=== PATIENT | female | born 1925 | race Caucasian/White ===

== ENCOUNTER 2016-05-01 15:39 | Emergency (ER) | payer MEDICARE, BC ==
[~2016-05-01] VITALS: Ht 162.6 cm; Wt 64.0 kg
[~2016-05-01 15:39] MED LIST: CEPH-460 PO; LEVO100T5 PO; METO25TA3 PO; MIRA33504 PO; NEXI40CA PO; NORC5TAB PO; OXYB5TAB PO
[2016-05-01 15:42] VITALS: BP 135/80; PULSE 94; RESP 20; TEMP 98.1; O2SAT 98
[2016-05-01 15:55] VITALS: BP 123/79; PULSE 91; RESP 18; O2SAT 97
[2016-05-01] MEDS ORDERED: ONDANSETRON HCL 4 MG/2 ML VIAL IVP ONE (16:15)
[2016-05-01] MEDS ORDERED: MORPHINE SULFATE 4 MG/ML INJ IV PUSH ONE (16:15)
[2016-05-01] MEDS ORDERED: SODIUM CHLORIDE 0.9% FLUSH 5 ML FLUSH IVF PRN (16:15)
[2016-05-01 16:23] LABS: AUTOMATED NEUTROPHIL # 4.2 TH/MM3 (1.8-7.7); BASOPHIL # 0.1 TH/MM3 (0-0.2); BASOPHIL % 0.8 % (0.0-2.0); EOSINOPHIL # 0.3 TH/MM3 (0-0.4); EOSINOPHIL % 4.4 % (0.0-4.0); HEMATOCRIT 45.8 % (35.0-46.0); HEMO FLAGS DIFF FINAL; LYMPH % 25.1 % (9.0-44.0); LYMPHOCYTE # 1.9 TH/MM3 (1.0-4.8); MEAN CELL VOLUME 86.5 FL (80.0-100.0); MEAN CORPUSCULAR HEMOGLOBIN 29.3 PG (27.0-34.0); MEAN CORPUSCULAR HGB CONC 33.8 % (32.0-36.0); MONO % 13.8 % (0.0-8.0); NEUT % 55.9 % (16.0-70.0); PLATELET COUNT 236 TH/MM3 (150-450); RED BLOOD COUNT 5.29 MIL/MM3 (4.00-5.30); RED CELL DISTRIBUTION WIDTH 14.3 % (11.6-17.2); WHITE BLOOD COUNT 7.4 TH/MM3 (4.0-11.0)
[2016-05-01 16:31] LABS: APTT (PATIENT) 28.4 SEC (24.3-30.1)
[2016-05-01 17:12] LABS: ALT (GPT) 24 U/L (10-53); ANION GAP 5 MEQ/L (5-15); AST (GOT) 23 U/L (15-37); BICARBONATE 31.1 MEQ/L (21.0-32.0); BLOOD UREA NITROGEN 8 MG/DL (7-18); CHLORIDE 105 MEQ/L (98-107); GLOMERULAR FILTRATION RATE 74 ML/MIN (>89); SODIUM (NA) 141 MEQ/L (136-145)
[2016-05-01 17:15] LABS: ALKALINE PHOSPHATASE 85 U/L (45-117); TOTAL BILIRUBIN ADULT 0.5 MG/DL (0.2-1.0)
[2016-05-01 17:45] VITALS: BP 103/60; PULSE 84; RESP 16; O2SAT 97
--- NOTE | 2016-05-01 18:36 | RADRPT ---
EXAM DATE/TIME: 05/01/2016 17:26 [facility] COMPARISON: CT ABDOMEN & PELVIS W/O CONTRAST, March 18, 2016, 17:14. INDICATIONS : Groin pain radiates to lower abdomen. ORAL CONTRAST: No oral contrast ingested. RADIATION DOSE: 14.62 CTDIvol (mGy) MEDICAL HISTORY : Hypertension. Diabetes SURGICAL HISTORY : Appendectomy. Cholecystectomy. Hysterectomy. ENCOUNTER: Initial ACUITY: 1 day PAIN SCALE: 3/10 LOCATION: Bilateral pelvis TECHNIQUE: Volumetric scanning of the abdomen and pelvis was performed. Using automated exposure control and ad justment of the mA and/or kV according to patient size, radiation dose was kept as low as reasonably achievable to obtain optimal diagnostic quality images. FINDINGS: The liver, spleen, pancreas, adrenal glands and kidneys are grossly normal. There is atherosclerotic calcification seen throughout the arterial system. The aorta measures up to 3.2 cm. This is unchan ged from the prior examination. There are diverticula seen in the left side of the colon. Significa nt surrounding inflammatory change is not seen. There is a small amount of air within the upper aspe ct of the vagina in the fornix on the left side. There is some minimal induration in the fat around the vaginal cuff. The patient appears to be status post hysterectomy. There is degenerative change in the lumbar spine. There is chronic collapse of the superior aspect fo L5. This was present previ ously. Coronary artery calcifications are present in the [place] coronary arteries. The patient is s tatus post sternotomy. CONCLUSION: 1. Colonic diverticula especially in the sigmoid region without significant inflammatory change. 2. Questionable minimal induration in the soft tissues around the vaginal cuff. This could be a pos toperative change from the prior hysterectomy. Some minimal inflammatory change related to the vagin al cuff cannot be excluded. This can be correlated clinically. 3. Degenerative change in the lumbar spine with chronic collapse of the superior aspect of L5. This was present previously. Jason Garcia MD on May 01, 2016 at 18:17 Board Certified Radiologist. This report was verified electronically.
[2016-05-01] MEDS ORDERED: CLOTR1%T TOPICAL (19:30)
--- NOTE | 2016-05-01 19:30 | PD ---
HPI Chief Complaint: Abdominal Pain Time Seen by Provider: 15:51 Travel History International Travel<30 days: No Contact w/Intl Traveler<30days: No Traveled to known affect area: No History of Present Illness HPI Patient is an 89-year-old female comes in complaining of lower abdominal pain. She says she has had this pain "for a long time." She says she was told at one point that they thought the pain was due to pain. She says she is scheduled for hip replacement soon. She denies nausea or vomiting. She denies any dysuria. She has not had any fever or chills. She is having regular bowel movements. PFSH Past Medical History Hx Anticoagulant Therapy: Yes (ASA) Cardiovascular Problems: Yes (CABG X 2) Chest Pain: Yes Coronary Artery Disease: Yes Diabetes: Yes Patient Takes Glucophage: No Diminished Hearing: No Gastrointestinal Disorders: Yes GERD: Yes Hypertension: Yes Myocardial Infarction: Yes Tetanus Vaccination: < 5 Years Influenza Vaccination: Yes Menopausal: Yes Past Surgical History Appendectomy: Yes Cholecystectomy: Yes Coronary Artery Bypass Graft: Yes (double) Eye Surgery: Yes (bilateral cataract) Gynecologic Surgery: Yes Hysterectomy: Yes Joint Replacement: Yes (bilateral knee replacements) Thoracic Surgery: Yes (UPPER RIBS REMOVED) Family History Family Hypercholesterolemia: Yes Social History Alcohol Use: No Tobacco Use: No Substance Use: No Allergies-Medications (Allergen,Severity, Reaction): Coded Allergies: Contrast Media (Verified Allergy, Severe, unknown, 05/01/16) Nitroglycerin (Verified Adverse Reaction, Severe, PT GETS TACHYCARDIA, ) Reported Meds & Prescriptions Reported Meds & Active Scripts Active Reported Oxybutynin ER 24 HR (Oxybutynin Chloride) 5 Mg Tab 5 Mg PO DAILY Metoprolol Tartrate 25 Mg Tab 25 Mg PO DAILY Levothyroxine (Levothyroxine Sodium) 100 Mcg Tab 100 Mcg PO DAILY [place]oh (Hydrocodone-Acetaminophen) 5-325 mg Tab 1 Tab PO TID Nexium (Esomeprazole DR) 40 Mg Capdr 40 Mg PO TID Review of Systems Except as stated in HPI: all other systems reviewed are Neg General / Constitutional: No: Fever, Chills HENT: No: Headaches, Lightheadedness Cardiovascular: No: Chest Pain or Discomfort Respiratory: No: Shortness of Breath Gastrointestinal: Positive: Abdominal Pain, No: Nausea, Vomiting Genitourinary: Positive: Pelvic Pain, No: Dysuria Skin: Positive Rash Neurologic: No: Weakness, Dizziness Physical Exam Narrative GENERAL: Awake and alert in no acute distress. SKIN: Warm and dry. Erythema in the skin fold under her pannus. HEAD: Atraumatic. Normocephalic. EYES: Pupils equal and round. No scleral icterus. ENT: No nasal bleeding or discharge. Mucous membranes pink and moist. NECK: Trachea midline. No JVD. CARDIOVASCULAR: Regular rate and rhythm. No murmur appreciated. RESPIRATORY: No accessory muscle use. Clear to auscultation. Breath sounds equal bilaterally. GASTROINTESTINAL: Abdomen soft, non-tender, nondistended. : No erythema or swelling around the vulva. No irritation, swelling or erythema at the entrance to the vagina. MUSCULOSKELETAL: No obvious deformities. No clubbing. No cyanosis. No edema. NEUROLOGICAL: Awake and alert. No obvious cranial nerve deficits. Motor grossly within normal limits. Normal speech. PSYCHIATRIC: Appropriate mood and affect; insight and judgment normal. Data Data Last Documented VS Vital Signs Date Time Temp Pulse Resp B/P Pulse Ox O2 Delivery O2 Flow Rate FiO2 05/01/16 17:45 84 16 103/60 97 Room Air 05/01/16 15:42 98.1 Orders Complete Blood Count With Diff (05/01/16 16:03) Comprehensive Metabolic Panel (05/01/16 16:03) Prothrombin Time / Inr (Pt) (05/01/16 16:03) Act Partial Throm Time (Ptt) (05/01/16 16:03) Urinalysis - C+S If Indicated (05/01/16 16:03) Ua Includes Microscopic (05/01/16 16:03) Iv Access Insert/Monitor (05/01/16 16:03) Ecg Monitoring (05/01/16 16:03) Oximetry (05/01/16 16:03) Morphine Inj (Morphine Inj) (05/01/16 16:15) Ondansetron Inj (Zofran Inj) (05/01/16 16:15) Sodium Chloride 0.9% Flush (Ns Flush) (05/01/16 16:15) Ct Abd/Pel W/O Iv Contrast (05/01/16 ) Labs Laboratory Tests Test 05/01/16 16:15 White Blood Count 7.4 TH/MM3 Red Blood Count 5.29 MIL/MM3 Hemoglobin 15.5 GM/DL Hematocrit 45.8 % Mean Corpuscular Volume 86.5 FL Mean Corpuscular Hemoglobin 29.3 PG Mean Corpuscular Hemoglobin 33.8 % Concent Red Cell Distribution Width 14.3 % Platelet Count 236 TH/MM3 Mean Platelet Volume 8.3 FL Neutrophils (%) (Auto) 55.9 % Lymphocytes (%) (Auto) 25.1 % Monocytes (%) (Auto) 13.8 % Eosinophils (%) (Auto) 4.4 % Basophils (%) (Auto) 0.8 % Neutrophils # (Auto) 4.2 TH/MM3 Lymphocytes # (Auto) 1.9 TH/MM3 Monocytes # (Auto) 1.0 TH/MM3 Eosinophils # (Auto) 0.3 TH/MM3 Basophils # (Auto) 0.1 TH/MM3 CBC Comment DIFF FINAL Differential Comment Prothrombin Time 11.0 SEC Prothromb Time International 1.0 RATIO Ratio Activated Partial 28.4 SEC Thromboplast Time Sodium Level 141 MEQ/L Potassium Level 4.0 MEQ/L Chloride Level 105 MEQ/L Carbon Dioxide Level 31.1 MEQ/L Anion Gap 5 MEQ/L Blood Urea Nitrogen 8 MG/DL Creatinine 0.74 MG/DL Estimat Glomerular Filtration 74 ML/MIN Rate Random Glucose 119 MG/DL Calcium Level 9.4 MG/DL Total Bilirubin 0.5 MG/DL Aspartate Amino Transf 23 U/L (AST/SGOT) Alanine Aminotransferase 24 U/L (ALT/SGPT) Alkaline Phosphatase 85 U/L Total Protein 7.3 GM/DL Albumin 3.6 GM/DL [facility] Medical Decision Making Medical Screen Exam Complete: Yes Emergency Medical Condition: Yes Differential Diagnosis Colitis versus UTI versus skin infection Narrative Course Patient is an 89-year-old female comes in complaining of lower abdominal pain. Exam shows what looks like a yeast in the skin fold underneath her abdominal pannus. IV status, labs sent. Labs show no acute abnormalities. CT of the abdomen and pelvis performed showed some inflammation around that vaginal cuff. This is likely due to her prior hysterectomy as her vaginal exam appears normal. Patient given IV fluids, small dose of morphine for pain. Will be discharged with prescription for clotrimazole cream to apply to the skin fold. Patient advised follow-up with her doctors. Advised to return to the ED as needed for any worsening symptoms. Advised to keep this skin the area clean and dry. Patient is comfortable with discharge at this time. Diagnosis Primary Impression: Yeast dermatitis Patient Instructions: Soraya Albicans Antigen (Into the skin), General Instructions Additional Instructions: Follow up with your doctors. Keep your skin clean and dry. Apply the clotrimazole cream to the area of redness of your stomach. Return to the ED as needed for any worsening symptoms. Scripts Clotrimazole Topical 1% Soln1 Applic TOPICAL BID #10 ML Ref 0 Prov:Martha Jha MD 05/01/16 Disposition: 01 DISCHARGE HOME Condition: Stable Martha Jha MD May 01, 2016 19:30
[2016-05-01 19:34] LABS: BLOOD, URINE NEG (NEG); CALCIUM OXALATE CRYSTALS,URINE OCC /hpf; COMMENT (UR) CULT NOT INDICATED; CULTURE IF INDICATED CULT NOT INDICATED; GLUCOSE,URINE NEG (NEG); KETONE, URINE TRACE mg/dL (NEG); MUCUS URINE FEW /lpf (OCC); NITRITE,URINE NEG (NEG); SQUAMOUS EPITHELIAL CELL URINE 3 /hpf (0-5); URINE COLOR YELLOW (YELLW/STRAW)
[2016-07-29] MEDS ORDERED: HYDR-3516 PO (15:14)
[2016-07-29] MEDS ORDERED: METO25TA3 PO (15:14)
[2016-07-29] MEDS ORDERED: LEVO100T5 PO (15:14)
[2016-07-29] MEDS ORDERED: NEXI40CA PO (15:14)
== END 2016-05-01 20:45 | disposition home or self-care (01) ==
LOC: NEPA 15:39
DX: B37.2 Candidiasis of skin and nail (principal); Z79.82 Long term (current) use of aspirin; I25.10 Atherosclerotic heart disease of native coronary artery without angina pectoris; E11.9 Type 2 diabetes mellitus without complications; I10 Essential (primary) hypertension
CPT/HCPCS: 74176; 80053; 81001; 85025; 85610; 85730; 96374; 96375; 99284; J2270; J2405

== ENCOUNTER 2016-06-03 12:52 | Day surgery (SDC) | payer MEDICARE, BC ==
[~2016-06-03] VITALS: Ht 162.6 cm; Wt 75.9 kg
[~2016-06-03 12:52] MED LIST changes: -CEPH-460 PO; +CLOTR1%T TOPICAL; -MIRA33504 PO
[2016-06-03] MEDS ORDERED: GENTAMICIN SULFATE 80 MG/2 ML VIAL ONE (13:02)
[2016-06-03] MEDS ORDERED: PERC5TAB12 PO (13:16)
[2016-06-03] MEDS ORDERED: XARE10TA PO (13:16)
[2016-06-03] MEDS ORDERED: MORPHINE SULFATE 8 MG/ML INJ IV PUSH PRN (13:30)
[2016-06-03] MEDS ORDERED: SODIUM CHLORIDE 0.9% FLUSH 5 ML FLUSH IVF PRN (13:30)
[2016-06-03] MEDS ORDERED: Post-op Orders (for Pharmacy) MISC XX ONE (13:30)
[2016-06-03] MEDS ORDERED: SODIUM CHLORID 0.9% 500 ML IV SCH (13:30)
[2016-06-03] MEDS ORDERED: METOPROLOL TARTRATE 25 MG TAB PO PRN (13:30)
[2016-06-03] MEDS ORDERED: LACTATED RINGER'S 1000 ML IV SCH (13:30)
[2016-06-03] MEDS ORDERED: TRANEXAMIC ACID INJ 1,000 MG in SODIUM CHLORIDE 0.9% INJ 100 ML IV SCH (13:30)
[2016-06-03] MEDS ORDERED: ZOLPIDEM TARTRATE 5 MG TAB PO PRN (13:30)
[2016-06-03] MEDS ORDERED: oxyCODONE/ACETAMINOPHEN 5 MG/325 MG TAB PO PRN ×2 (13:30)
[2016-06-03] MEDS ORDERED: KETOROLAC TROMETHAMINE 30 MG/ML (IVP) VIAL IVP SCH (13:30)
[2016-06-03] MEDS ORDERED: INSULIN HUMAN REGULAR 1,000 UNITS/10 ML VIAL SQ PRN (13:30)
[2016-06-03] MEDS ORDERED: PROMETHAZINE HCL 25 MG TAB PO PRN (13:30)
[2016-06-03] MEDS ORDERED: ACETAMINOPHEN 325 MG TAB PO PRN (13:30)
[2016-06-03] MEDS ORDERED: ONDANSETRON HCL 4 MG/2 ML VIAL IVP PRN (13:30)
[2016-06-03] MEDS ORDERED: ENOXAPARIN SODIUM 30 MG/0.3 ML SYRINGE SQ SCH (13:30)
[2016-06-03] MEDS ORDERED: ceFAZolin 2 GM PREMIX 50 ML IV SCH (14:00)
[2016-06-03] MEDS ORDERED: VANCOMYCIN HCL 1000 MG ON-CALL/NS 250 ML IV SCH ×2 (14:00)
[2016-06-03 14:01] LABS: PROTHROMBIN TIME - PATIENT 11.3 SEC (9.8-11.6)
[2016-06-03 14:04] VITALS: BP 143/91; PULSE 74; RESP 18; TEMP 98.1; O2SAT 98
[2016-06-03] MEDS ORDERED: HYDR-4009 TOPICAL (14:10)
[2016-06-03] MEDS ORDERED: CLOB-23 TOPICAL (14:10)
[2016-06-03] MEDS ORDERED: DONE10TA7 PO (14:10)
[2016-06-03] MEDS ORDERED: LEVO100T5 PO (14:10)
[2016-06-03] MEDS ORDERED: ESOM1CAP16 PO (14:10)
[2016-06-03] MEDS ORDERED: HYDR-3516 PO (14:10)
[2016-06-03] MEDS ORDERED: ALBU0.08 NEB (14:10)
[2016-06-03] MEDS ORDERED: LOTR15T TOPICAL (14:10)
[2016-06-03] MEDS ORDERED: CARB100C CHEW (14:10)
[2016-06-03] MEDS ORDERED: FLUO20CA4 PO (14:10)
[2016-06-03] MEDS ORDERED: DESO0.053 TOPICAL (14:10)
[2016-06-03] MEDS ORDERED: OXYB5TAB PO (14:10)
[2016-06-03] MEDS ORDERED: CYCL5TAB PO (14:10)
[2016-06-03] MEDS ORDERED: METO25TA3 PO (14:10)
[2016-06-03] MEDS ORDERED: SODIUM CHLORIDE 0.9% FLUSH 5 ML FLUSH IVF SCH (21:00)
[2016-06-04] MEDS ORDERED: VANCOMYCIN INJ 1,000 MG in SODIUM CHLOR 0.9% 250 ML INJ 250 ML IV SCH (02:00)
[2016-06-04] MEDS ORDERED: MULTIVITAMINS/MINERALS THERAPEUTIC TAB PO SCH (21:00)
[2016-07-29] MEDS ORDERED: METO25TA3 PO (15:14)
[2016-07-29] MEDS ORDERED: NEXI40CA PO (15:14)
[2016-07-29] MEDS ORDERED: HYDR-3516 PO (15:14)
[2016-07-29] MEDS ORDERED: LEVO100T5 PO (15:14)
== END 2016-06-03 15:35 | disposition home or self-care (01) ==
LOC: HSDI 12:52 → HSDC 12:52 → UNDOADMIN 12:52 → EDSTATUS 14:30 → HSDC 15:35
PROVIDERS: ATTEND Orthopaedic Surgery
DX: M16.11 Unilateral primary osteoarthritis, right hip (principal); R21 Rash and other nonspecific skin eruption; I10 Essential (primary) hypertension; Z53.9 Procedure and treatment not carried out, unspecified reason
CPT/HCPCS: 36415; 85610; 86850; 86900; 86901; G0463; J0690; J1580; J3370; J7050; J7120; 99211

== ENCOUNTER 2016-07-29 15:19 | Inpatient (IN) | payer MEDICARE, BC ==
[~2016-07-29] VITALS: Ht 162.6 cm; Wt 83.6 kg
[~2016-07-29 15:19] MED LIST changes: -CLOTR1%T TOPICAL; +HYDR-3516 PO; -NORC5TAB PO; -OXYB5TAB PO
[2016-07-30] MEDS ORDERED: PROPOFOL 200 MG/20 ML AMP IV ONE (08:38)
[2016-07-30] MEDS ORDERED: PHENYLEPH/NS 1000 MCG/10 ML SYR IV ONE (08:38)
[2016-07-30] MEDS ORDERED: ONDANSETRON HCL 4 MG/2 ML VIAL IV PUSH ONE (08:38)
[2016-07-30] MEDS ORDERED: LACTATED RINGER'S 1000 ML IV PRN (12:15)
[2016-07-30] MEDS ORDERED: METOPROLOL TARTRATE 25 MG TAB PO PRN (12:15)
[2016-07-30] MEDS ORDERED: CHLORHEXIDINE GLUCONATE 2 % 1 PACK (2 CLOTHS) TOPICAL PRN (12:15)
[2016-07-30] MEDS ORDERED: INSULIN HUMAN REGULAR 1,000 UNITS/10 ML VIAL SQ PRN (12:15)
[2016-07-30] MEDS ORDERED: SODIUM CHLORID 0.9% 500 ML IV PRN (12:15)
[2016-07-30] MEDS ORDERED: GENTAMICIN SULFATE 80 MG/2 ML VIAL ONE ×2 (12:38)
[2016-07-30] MEDS: EXPAREL PERI-ARTICULAR INJECTION (TOTAL VOL. 60 ML) P-ARTICULR SCH ×4 (13:00→15:09)
[2016-07-30 13:09] VITALS: BP 119/71; PULSE 70; RESP 18; TEMP 97.8; O2SAT 92
[2016-07-30 13:09] LABS: AUTOMATED NEUTROPHIL # 5.1 TH/MM3 (1.8-7.7); BASOPHIL # 0.1 TH/MM3 (0-0.2); BASOPHIL % 0.8 % (0.0-2.0); EOSINOPHIL # 0.3 TH/MM3 (0-0.4); EOSINOPHIL % 3.6 % (0.0-4.0); HEMATOCRIT 42.2 % (35.0-46.0); HEMO FLAGS DIFF FINAL; LYMPH % 29.2 % (9.0-44.0); LYMPHOCYTE # 2.8 TH/MM3 (1.0-4.8); MEAN CELL VOLUME 88.6 FL (80.0-100.0); MEAN CORPUSCULAR HEMOGLOBIN 29.6 PG (27.0-34.0); MEAN CORPUSCULAR HGB CONC 33.4 % (32.0-36.0); MONO % 12.6 % (0.0-8.0); NEUT % 53.8 % (16.0-70.0); PLATELET COUNT 240 TH/MM3 (150-450); RED BLOOD COUNT 4.76 MIL/MM3 (4.00-5.30); RED CELL DISTRIBUTION WIDTH 14.1 % (11.6-17.2); WHITE BLOOD COUNT 9.5 TH/MM3 (4.0-11.0)
[2016-07-30] MEDS ORDERED: TRANEXAMIC ACID INJ 770 MG in SODIUM CHLORIDE 0.9% INJ 100 ML IV SCH (13:15)
[2016-07-30] MEDS ORDERED: ceFAZolin INJ 1,000 MG VIAL ONE (15:06)
[2016-07-30] MEDS ORDERED: VANCOMYCIN HCL 1000 MG VIAL ONE (15:06)
[2016-07-30] MEDS ORDERED: SODIUM CHLOR 0.9% 250 ML INJ 250 ML ONE (15:06)
--- NOTE | 2016-07-30 17:38 | PD.OP ---
cc: Robbie Rascon Jr., MD Operative Report Date of Surgery: Jul 30, 2016 Preoperative Diagnosis: Right hip osteoarthritis Postoperative Diagnosis: Same Procedure: Right hip total hip arthroplasty anterior approach Anesthesia: Gen. Surgeon: Robbie Rascon Communication Spec(s): JAYJAY Ferrara The surgical procedure was assisted by my Advanced Registered Nurse Practitioner. My CLINICAL TRIALS SYSTEMS ADMINISTRATOR presence was necessary throughout this case for the manipulation and positioning of the surgical extremity. My CLINICAL TRIALS SYSTEMS ADMINISTRATOR was assisting me throughout the duration of this procedure. The skill set of an Advance Registered Nurse Practitioner was medically necessary to complete this procedure. During the surgical case, the surgical training specialist was working at the back table and the Advance Registered Nurse Practitioner was directly assisting me. Resident Surgeon: None Operation and Findings: DETAILS OF PROCEDURE: This patient has a long history of hip pain. Patient was found to have severe osteoarthritis. The patient had radiographic evidence of joint space narrowing with [id number] arthritis and osteophytes around the acetabulum as well as the femoral head. There was also some cystic changes. The patient failed conservative treatment with pain medications, anti-inflammatories, physical therapy, assistive devices including a cane, as well as therapeutic injection of the hip. The patient wished to proceed with surgery and informed consent was obtained. Operative site was marked. I discussed both posterior approach and anterior approach. The patient decided on anterior approach. Patient was brought to OR and placed on OR table. IV sedation and general anesthesia was administered by anesthesiologist. Patient positioned on a Idania table and was given IV antibiotics. Time-out procedure was performed. The right hip and thigh were prepped with alcohol followed by Hibiclens. The thigh was draped in the usual sterile fashion. Clean Air Suite was used for this procedure. The procedure began with a 5-inch incision over the anterolateral thigh. Subcutaneous tissue was dissected with Bovie. The fascia over the tensa fasciae latae was incised. Care was taken to avoid injury to the lateral femoral cutaneous nerve. The tensor muscle was retracted laterally. Sartorius was retracted medially. Retractors were now placed. The reflected head of the rectus is now elevated. A capsulotomy was performed over the anterior head capsule. Sutures were placed to help retract the capsule. At this point the femoral head and neck were identified. With soft tissue protected, oscillating saw was used to make a cut through the femoral neck, the femoral head was now removed. At this point attention was turned to preparation of the acetabulum. The labrum was excised. The acetabulum was sequentially reamed up to size 49mm. A 50mm tritanium cup was now placed. Fluoroscopy was used to aid in identification of appropriate version. Cup was fully impacted and found to have excellent fit. Hole eliminator was now placed. The liner was now impacted into the cup. At this point the hip was externally rotated. A hook was placed around the proximal femur. The capsule was released off the lateral and medial femur. The hip was now extended and adducted. Retractors were placed around the proximal femur to allow for exposure. A box osteotome was used to remove the lateral cortex of the femoral neck. A broach was used to help lateralize the prosthesis. Canal finder was used to create a path down the canal. Next, the canal was sequentially broached up to size 5. This was found to be an excellent fit. Calcar planer was placed. A standard head was placed, hip was reduced. Trial head was now was placed and the hip was found to have excellent stability with good range of motion. The leg lengths were measured under fluoroscopy and found to be equal compared to preoperatively. Trial broach was removed. The stem was opened. Stem was fully impacted into the proximal femur in appropriate version. The femoral head was placed. The hip was again reduced. Fluoroscopy confirmed excellent alignment of prosthesis. The wound was thoroughly irrigated and capsule was closed with #1 Vicryl. The fascia over the tensor fasciae muscle was closed with #1 Vicryl, subcutaneous tissue was closed with 3-0 Vicryl and the skin was closed with ryan. The capsule layers were injected with a mixture of saline and bupivicaine. Dressings were applied. The patient was transferred to Recovery Room in stable condition. IMPLANTS USED Striker Accolade stem size 5132 Titanium 50 cluster shell neutral liner Head 36 -5 metal POSTP-OP PLAN OF ACTIVITY Antibiotics: Ancef, vancomycin Antiocoagulation: Lovenox Weight bearing status: WBAT Dressing: Change daily, by RN starting postop day 2 Dispo: expected discharge 2-3 days. Robbie Rascon Jr., MD Jul 30, 2016 17:38
--- NOTE | 2016-07-30 17:40 | HHI.DS ---
Discharge Summary Admission Date Jul 30, 2016 at 11:38 Discharge Date: Aug 03, 2016 Admitting Diagnosis right hip OA Diagnosis: (1) Osteoarthritis of right hip Diagnosis: Principal Procedures right DIPIKA, anterior Brief History This is a 89 year old female patient CBC/BMP: 07/30/16 1251 Significant Findings Laboratory Tests Test 07/30/16 12:51 Monocytes (%) (Auto) 12.6 % (0.0-8.0) Monocytes # (Auto) 1.2 TH/MM3 (0-0.9) Imaging Last 72 hours Impressions Barium Swallow X-Ray 08/02/16 0000 Signed Impressions: Service Date/Time: Tuesday, August 02, 2016 11:45 - CONCLUSION: 1. Limited suboptimal exam. 2. The distal esophagus appears persistently narrowed which could indicate a stricture. This measured up to 1 cm in greatest diameter. 3. Small reducible hiatal hernia. 4. 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 Adam Osorio MD Hospital Course The patient was taken to the operating room by the undersigned for the above procedures which she tolerated well. She extubated then transferred to PACU in stable condition. The patient was subsequently transferred to the floor. The rest of his hospital stay, she was seen by speech therapy. She received adequate postoperative antibiotics. Her diet was advanced as tolerated and he had full return of bowel function as well as making adequate urine output. We were able to covert IV pain meds to po pain meds. The patient received adequate physical therapy during his stay in is being discharged with detailed physical therapy recommendations. The patient was seen and examined on the day of discharge and found to be in stable condition. On Exam at discharge: Operative extremity was neurovascularly intact with dressing that was clean, dry and intact. WBAT RLE. Anterior hip precautions. Follow-up 10-[address] Rascon @ orthopaedic clinic with a Bambi Sanabria. Pt Condition on Discharge: Good Discharge Disposition: Discharge to SNF Discharge Instructions Diet Instructions: As Tolerated, No Restrictions Activities You Can Perform: Full Weight Bearing Robbie Rascon Jr., MD Jul 30, 2016 17:40
[2016-07-30] MEDS ORDERED: PERC5TAB12 PO (17:42)
[2016-07-30] MEDS ORDERED: XARE10TA PO (17:42)
[2016-07-30] MEDS ORDERED: Post-op Orders (for Pharmacy) MISC XX ONE (17:45)
[2016-07-30] MEDS ORDERED: SODIUM CHLORIDE 0.9% FLUSH 10 ML FLUSH IV FLUSH PRN (17:45)
[2016-07-30] MEDS ORDERED: ACETAMINOPHEN 325 MG TAB PO PRN (17:45)
[2016-07-30] MEDS ORDERED: PROMETHAZINE HCL 25 MG TAB PO PRN (17:45)
[2016-07-30] MEDS ORDERED: ENOXAPARIN SODIUM 30 MG/0.3 ML SYRINGE SQ SCH (17:45)
[2016-07-30] MEDS ORDERED: RIVAROXABAN 10 MG TAB PO SCH (17:45)
--- NOTE | 2016-07-30 17:51 | RADRPT ---
EXAM DATE/TIME: 07/30/2016 14:39 [facility] COMPARISON: No previous studies available for comparison. INDICATIONS : Total right hip placement in or. MEDICAL HISTORY : None. SURGICAL HISTORY : None. ENCOUNTER: Initial ACUITY: 1 day PAIN SCORE: Non-responsive. LOCATION: Right Hip. FINDINGS: A two view examination of the right hip was performed. We see spot images show a right total hip arth roplasty. Both the femoral and acetabular components are appropriately positioned. No obvious fractur e on the images provided. CONCLUSION: Appropriate postoperative appearance of the right hip status post total arthroplasty. Bernard Kahn MD on July 30, 2016 at 17:48 Board Certified Radiologist. This report was verified electronically.
[2016-07-30] MEDS ORDERED: DO NOT ADM ANY ANTICOAGULANT DRUGS PRN (17:53)
--- NOTE | 2016-07-30 17:57 | PD.ORT.PN ---
Subjective Subjective Remarks Immediate postop note Objective Vitals Vital Signs Date Time Temp Pulse Resp B/P Pulse Ox O2 Delivery O2 Flow Rate FiO2 07/30/16 13:09 97.8 70 18 119/71 92 Result Diagram: 07/30/16 1251 Procedures right DIPIKA, anterior Objective Remarks Right lower extremity: Neurovascularly intact, +EHL/FHL, dressing clean, dry and intact. + PT/DP pulses. Supple compartments. Negative Homans sign. Left lower extremity: neurovascularly intact Assessment & Plan Problem List: (1) Osteoarthritis of right hip Assessment and Plan POD-0 - right anterior DIPIKA Antibiotics: Ancef Antiocoagulation: xarelto. continue up to 3 wks postop Weight bearing status: WBAT Dressing: Change daily, by RN starting postop day 2 Dispo: expected discharge 08/02 to inpatient rehab. 3008. rx in chart Robbie Rascon Jr., MD Jul 30, 2016 17:57
[2016-07-30] MEDS ORDERED: *morphine SULFATE 8 MG/ML PERIprocedure ONLY ONE (18:02)
[2016-07-30] MEDS ORDERED: TRANEXAMIC ACID IV SCH (18:30)
[2016-07-30] MEDS ORDERED: SODIUM CHLORIDE 0.9% IV SCH (18:30)
--- NOTE | 2016-07-30 18:36 | RADRPT ---
EXAM DATE/TIME: 07/30/2016 17:58 [facility] COMPARISON: HIP RIGHT (AP&LAT 2/3VWS) WO AP PELVIS, July 30, 2016, 14:39. INDICATIONS : Post op right total hip replacement MEDICAL HISTORY : None. SURGICAL HISTORY : None. ENCOUNTER: Initial ACUITY: 1 day PAIN SCORE: Non-responsive. LOCATION: Right hip FINDINGS: Examination of the right hip was performed with AP Pelvis. Right hip arthroplasty. Postsurgical clayton es with skin ryan seen. No hardware loosening or fracture. The acetabulum is grossly intact. CONCLUSION: Right hip arthroplasty. Deshaun Dickinson MD on July 30, 2016 at 18:33 Board Certified Radiologist. This report was verified electronically.
[2016-07-30] MEDS: SODIUM CHLOR 0.45% 1000 ML INJ 1,000 ML IV SCH (18:45)
[2016-07-30] MEDS: KETOROLAC TROMETHAMINE 30 MG/ML (IVP) VIAL IVP SCH ×2 (18:50→23:38)
[2016-07-30] MEDS ORDERED: *HYDROmorphone PF 1 MG VIAL PERIprocedural Use ONLY ONE (19:06)
[2016-07-30] MEDS ORDERED: HYDROmorphone HCL PF 1 MG/ML VIAL IV ONE (19:30)
--- NOTE | 2016-07-30 19:40 | RADRPT ---
EXAM DATE/TIME: 07/30/2016 19:14 [facility] COMPARISON: CHEST SINGLE AP, March 24, 2016, 3:38. INDICATIONS : Chest pain. MEDICAL HISTORY : Hypertension. Myocardial infarction. Gastroesophageal reflux disease. Coronary artery disease. Di abetes. SURGICAL HISTORY : CABG. Upper rib resection. ENCOUNTER: Initial ACUITY: 1 day PAIN SCORE: 4/10 LOCATION: Bilateral chest FINDINGS: A single view of the chest demonstrates the lungs to be symmetrically aerated without evidence of mas s, infiltrate or effusion. Mild cardiomegaly. The cardiomediastinal contours are unremarkable. Statu s post CABG. Osseous structures are intact. CONCLUSION: No acute disease. Deshaun Dickinson MD on July 30, 2016 at 19:38 Board Certified Radiologist. This report was verified electronically.
[2016-07-30 20:06] LABS: CREATINE KINASE 417 U/L (26-192)
[2016-07-30 20:18] LABS: CKMB 2.1 NG/ML (0.5-3.6)
[2016-07-30] MEDS: SODIUM CHLORIDE 0.9% FLUSH 10 ML FLUSH IV FLUSH SCH (21:00)
[2016-07-30] MEDS ORDERED: ZOLPIDEM TARTRATE 5 MG TAB PO PRN (21:00)
[2016-07-30 21:08] VITALS: BP 101/59; PULSE 85; RESP 20; TEMP 97; O2SAT 97
[2016-07-30 21:55] VITALS: O2SAT 97
[2016-07-30] MEDS: ceFAZolin 2 GM PREMIX 50 ML IV SCH (22:04)
[2016-07-31] VITALS (10 sets, daily range): BP systolic 101–138; BP diastolic 64–82; PULSE 90–115; RESP 18–24; TEMP 96.3–100.5; O2SAT 91–98
[2016-07-31] MEDS: ceFAZolin 2 GM PREMIX 50 ML IV SCH ×2 (02:37→08:18)
[2016-07-31] MEDS: oxyCODONE/ACETAMINOPHEN 5 MG/325 MG TAB PO PRN ×4 (02:38→17:56)
[2016-07-31] MEDS: MORPHINE SULFATE 8 MG/ML INJ IV PUSH PRN (04:44)
[2016-07-31] MEDS: KETOROLAC TROMETHAMINE 30 MG/ML (IVP) VIAL IVP SCH ×3 (06:10→17:57)
--- NOTE | 2016-07-31 07:53 | PD.ORT.PN ---
Subjective Subjective Remarks Very disorganized conversation. Responds to questions inappropriately but becomes more appropriate after multiple questions. Notes right groin pain 'all the way down leg' but then moves leg without any grimacing. Denies any difficulty breathing, shortness of breath or chest pain. Objective Vitals Vital Signs Date Time Temp Pulse Resp B/P Pulse Ox O2 Delivery O2 Flow Rate FiO2 07/31/16 04:00 100.5 115 24 138/78 97 07/31/16 00:47 99 07/31/16 00:00 98.1 90 22 101/64 98 07/30/16 21:55 97 Nasal Cannula 2.00 07/30/16 21:08 97.0 85 20 101/59 97 07/30/16 20:35 70 16 97 Nasal Cannula 2 07/30/16 20:30 97.5 69 16 105/65 98 Nasal Cannula 2 07/30/16 20:29 Nasal Cannula 2.00 07/30/16 20:15 68 16 100/61 97 Nasal Cannula 2 07/30/16 20:00 97.3 70 16 97/62 97 Nasal Cannula 2 07/30/16 19:50 15 07/30/16 19:50 15 07/30/16 19:45 72 16 98/60 96 Nasal Cannula 2 07/30/16 19:30 96.9 71 16 100/63 95 Nasal Cannula 2 07/30/16 19:15 71 15 102/62 95 Nasal Cannula 2 07/30/16 19:00 96.8 72 15 108/63 100 Nasal Cannula 3 07/30/16 18:45 70 15 111/66 99 Nasal Cannula 3 07/30/16 18:30 96.1 68 15 114/69 98 Nasal Cannula 3 07/30/16 18:15 66 15 116/74 97 Nasal Cannula 3 07/30/16 18:07 15 07/30/16 18:00 63 15 112/66 96 Nasal Cannula 3 07/30/16 17:50 66 20 117/69 100 Nasal Cannula 4 07/30/16 13:09 97.8 70 18 119/71 92 I/O 07/30/16 07/30/16 07/30/16 07/31/16 07/31/16 07/31/16 07:00 15:00 23:00 07:00 15:00 23:00 Intake Total 900 ml 647 ml Output Total 1000 ml Balance -100 ml 647 ml Intake IV Total 200 ml 647 ml Other 700 ml Output Urine Total 600 ml Estimated Blood Loss 400 ml Result Diagram: 07/30/16 1251 Procedures right DIPIKA, anterior Objective Remarks Sitting up in bed NAD AAO x 1, Disorganized conversation RLE Hip dressing c/d/i, mild swelling, no erythema thigh and calf supple, no grimacing with palpation, neg homans +motor at (doesnt respond to commands but moves foot independently), +sens , +nvi Pt seen and evaluated by Dr. Basim Eckert Assessment & Plan Ortho Post Op Day #: 1 Problem List: (1) Osteoarthritis of right hip Assessment and Plan POD#1 s/p R DIPIKA, anterior D/C PIERCING ARTIST - change to po pain meds. Xarelto 10mg qd PT - R LE WBAT. anterior dipika precautions. Dressing: Change daily, by RN starting postop day 2 D/C willson cath D/C planning, snf tuesday. Martha Snider Jul 31, 2016 07:53
[2016-07-31] MEDS: SODIUM CHLOR 0.45% 1000 ML INJ 1,000 ML IV SCH ×2 (08:23→20:54)
[2016-07-31] MEDS: SODIUM CHLORIDE 0.9% FLUSH 10 ML FLUSH IV FLUSH SCH ×2 (09:00→20:54)
[2016-07-31] MEDS ORDERED: RIVAROXABAN 10 MG TAB PO SCH ×2 (09:00→17:00)
--- NOTE | 2016-07-31 09:18 | PD.CONS ---
HPI Service [facility] Consult Requested By ortho Reason for Consult Medical management Primary Care Physician Pat Garsia MD Diagnoses: History of Present Illness 89-year-old female with multiple medical problems came to the same day surgery for left hip surgery by Dr. Rascon. Last the list is consulted for medical management. Patient was seen after surgery. She appears in not acute distress however she is noted disoriented, with flight ideas. She is following some commands. She reports constipation. Denies chest pain or shortness of breath. Has nausea, did not vomit. Pain is controlled by medications. She is on PREPARED FOODS SERVICE TEAM MEMBER pump, plan to discontinue today and transition by mouth pain medications. Ansari discontinued today.No urinary complaints. Histor is obtained from partially from patient and also from reviewing records. 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, degenerative joint disease, coronary artery disease, history of CABG, Hypothyroidism Past Surgical History CABG Reported Medications Reported Meds & Active Scripts Active Percocet (Oxycodone-Acetaminophen) 5-325 mg Tab 1 Tab PO Q4H PRN Xarelto (Rivaroxaban) 10 Mg Tab 10 Mg PO DAILY 21 Days Reported Metoprolol Tartrate 25 Mg Tab 25 Mg PO DAILY Nexium (Esomeprazole DR) 40 Mg Capdr 40 Mg PO BID Levothyroxine (Levothyroxine Sodium) 100 Mcg Tab 100 Mcg PO DAILY Hydrocodone-Acetaminophen 5-325 mg Tab 2 Tab PO Q8HR PRN Family History Brother and sister with diabetes mellitus Social History Former smoker Denies illicit drug use or alcohol use. Physical Exam Vital Signs Vital Signs Date Time Temp Pulse Resp B/P Pulse Ox O2 Delivery O2 Flow Rate FiO2 07/31/16 08:00 98.4 105 18 124/64 94 07/31/16 04:00 100.5 115 24 138/78 97 07/31/16 00:47 99 07/31/16 00:00 98.1 90 22 101/64 98 07/30/16 21:55 97 Nasal Cannula 2.00 07/30/16 21:08 97.0 85 20 101/59 97 07/30/16 20:35 70 16 97 Nasal Cannula 2 07/30/16 20:30 97.5 69 16 105/65 98 Nasal Cannula 2 07/30/16 20:29 Nasal Cannula 2.00 07/30/16 20:15 68 16 100/61 97 Nasal Cannula 2 07/30/16 20:00 97.3 70 16 97/62 97 Nasal Cannula 2 07/30/16 19:50 15 07/30/16 19:50 15 07/30/16 19:45 72 16 98/60 96 Nasal Cannula 2 07/30/16 19:30 96.9 71 16 100/63 95 Nasal Cannula 2 07/30/16 19:15 71 15 102/62 95 Nasal Cannula 2 07/30/16 19:00 96.8 72 15 108/63 100 Nasal Cannula 3 07/30/16 18:45 70 15 111/66 99 Nasal Cannula 3 07/30/16 18:30 96.1 68 15 114/69 98 Nasal Cannula 3 07/30/16 18:15 66 15 116/74 97 Nasal Cannula 3 07/30/16 18:07 15 07/30/16 18:00 63 15 112/66 96 Nasal Cannula 3 07/30/16 17:50 66 20 117/69 100 Nasal Cannula 4 07/30/16 13:09 97.8 70 18 119/71 92 Physical Exam GENERAL: This is a well-nourished, well-developed patient, in no apparent distress, with flight of ideas, appears confused at time. Verbally aggressive at times SKIN: No rashes, ecchymoses or lesions. Cool and dry. HEAD: Atraumatic. Normocephalic. No temporal or scalp tenderness. EYES: Pupils equal round and reactive. Extraocular motions intact. No scleral icterus. No injection or drainage. ENT: Nose without bleeding, purulent drainage or septal hematoma. Throat without erythema, tonsillar hypertrophy or exudate. Uvula midline. Airway patent. NECK: Trachea midline. No JVD or lymphadenopathy. Supple, nontender, no meningeal signs. CARDIOVASCULAR: Regular rate and rhythm without murmurs, gallops, or rubs. RESPIRATORY: Clear to auscultation. Breath sounds equal bilaterally. No wheezes , rales, or rhonchi. GASTROINTESTINAL: Abdomen soft, non-tender, nondistended. No hepato-splenomegaly , or palpable masses. No guarding. MUSCULOSKELETAL: S/p surgery right hip, dressing C/D/I, no erythema, mild edema. Extremities without clubbing, cyanosis, or edema. No joint tenderness, effusion, or edema noted. No calf tenderness. Negative Homans sign bilaterally. NEUROLOGICAL: Awake and alert. Cranial nerves II through XII intact. Motor and sensory grossly within normal limits. Five out of 5 muscle strength in all muscle groups. Normal speech. Laboratory Laboratory Tests Test 07/30/16 07/30/16 12:51 19:23 White Blood Count 9.5 Red Blood Count 4.76 Hemoglobin 14.1 Hematocrit 42.2 Mean Corpuscular Volume 88.6 Mean Corpuscular Hemoglobin 29.6 Mean Corpuscular Hemoglobin 33.4 Concent Red Cell Distribution Width 14.1 Platelet Count 240 Mean Platelet Volume 8.1 Neutrophils (%) (Auto) 53.8 Lymphocytes (%) (Auto) 29.2 Monocytes (%) (Auto) 12.6 Eosinophils (%) (Auto) 3.6 Basophils (%) (Auto) 0.8 Neutrophils # (Auto) 5.1 Lymphocytes # (Auto) 2.8 Monocytes # (Auto) 1.2 Eosinophils # (Auto) 0.3 Basophils # (Auto) 0.1 CBC Comment DIFF FINAL Differential Comment Blood Type O POSITIVE Antibody Screen NEGATIVE Total Creatine Kinase 417 Creatine Kinase MB 2.1 Creatine Kinase MB % 0.5 Troponin I LESS THAN 0.02 Result Diagram: 07/30/16 1251 Imaging Last Impressions Hip and Pelvis X-Ray 07/30/16 0000 Signed Impressions: Service Date/Time: Saturday, July 30, 2016 17:58 - CONCLUSION: Right hip arthroplasty. Deshaun Dickinson MD Hip X-Ray 07/30/16 0000 Signed Impressions: Service Date/Time: Saturday, July 30, 2016 14:39 - CONCLUSION: Appropriate postoperative appearance of the right hip status post total arthroplasty. Bernard Kahn MD Chest X-Ray 07/30/16 0000 Signed Impressions: Service Date/Time: Saturday, July 30, 2016 19:14 - CONCLUSION: No acute disease. Deshaun Dickinson MD Assessment and Plan Assessment and Plan Osteoarthritis left hip: S/p R DIPIKA, anterior by Dr Tarah mcgee on 07/30/16 D/C PREPARED FOODS SERVICE TEAM MEMBER - change to po pain meds. Patient is noted confused and disoriented Xarelto 10mg qd PT - R LE WBAT. anterior dipika precautions. Nausea: Antiemetics as need. 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 CXR is normal no signs of infection, no leukocytosis. VSS. Trop is neg and patient doesn't complain of any chest pain. Restart home medications. Currently on PREPARED FOODS SERVICE TEAM MEMBER, plan to transition to PO meds for pain. Monitor the patient. If continues to be confused and with flight of idea consider consulting psychiatry service. Discharge plan per ortho : DC to SNF on Tuesday. Discussed with the patient, nurse. Maira Silverio MD Jul 31, 2016 09:18
--- NOTE | 2016-07-31 13:53 | EKG ---
Date Performed: 07/30/2016 Time Performed: 19:16:07 PTAGE: 89 years EKG: SINUS BRADYCARDIA NONSPECIFIC ST & T-WAVE ABNORMALITY Rate has slowed since prior tracing N on-specific ST-T wave changes are more pronounced Clinical correlation is recommended BORDERLINE ECGP REVIOUS TRACING : 03/24/2016 03.27 DOCTOR: Fernando Gupta Interpretating Date/Time 07/31/2016 13:53:09
[2016-07-31] MEDS ORDERED: MAGNESIUM HYDROXIDE SUSP 30 ML CUP PO PRN (15:30)
[2016-07-31] MEDS ORDERED: LACTULOSE SYRUP 20 GM/30 ML CUP PO PRN (15:30)
[2016-07-31 16:24] LABS: BACTERIA, URINE RARE /hpf; BLOOD, URINE MOD (NEG); COMMENT (UR) CULTURE INDICATED; CULTURE IF INDICATED CULTURE INDICATED; GLUCOSE,URINE NEG (NEG); KETONE, URINE TRACE mg/dL (NEG); MUCUS URINE FEW /lpf (OCC); NITRITE,URINE NEG (NEG); URINE COLOR YELLOW (YELLW/STRAW)
[2016-07-31] MEDS: cefTRIAXone INJ 1,000 MG in SODIUM CHLORIDE 0.9% INJ 100 ML IV SCH (20:54)
[2016-07-31] MEDS: MULTIVITAMINS/MINERALS THERAPEUTIC TAB PO SCH (20:54)
[2016-07-31] MEDS: DOCUSATE SODIUM 100 MG CAP PO SCH (20:55)
[2016-08-01] VITALS: BP 112/84; PULSE 108; RESP 20; TEMP 97.4; O2SAT 91
[2016-08-01] MEDS: KETOROLAC TROMETHAMINE 30 MG/ML (IVP) VIAL IVP SCH ×3 (00:18→12:53)
[2016-08-01] MEDS: oxyCODONE/ACETAMINOPHEN 5 MG/325 MG TAB PO PRN (00:20)
[2016-08-01 04:00] VITALS: BP 99/58; PULSE 107; RESP 22; TEMP 96.7; O2SAT 99
[2016-08-01] MEDS: LEVOTHYROXINE SODIUM 100 MCG TAB PO SCH (05:05)
[2016-08-01 05:51] LABS: AUTOMATED NEUTROPHIL # 8.6 TH/MM3 (1.8-7.7); BASOPHIL % 0.4 % (0.0-2.0); EOSINOPHIL # 0.3 TH/MM3 (0-0.4); EOSINOPHIL % 2.7 % (0.0-4.0); HEMATOCRIT 35.6 % (35.0-46.0); HEMO FLAGS DIFF FINAL; LYMPH % 16.6 % (9.0-44.0); LYMPHOCYTE # 2.1 TH/MM3 (1.0-4.8); MEAN CELL VOLUME 88.9 FL (80.0-100.0); MEAN CORPUSCULAR HEMOGLOBIN 29.6 PG (27.0-34.0); MEAN CORPUSCULAR HGB CONC 33.3 % (32.0-36.0); MONO % 12.9 % (0.0-8.0); NEUT % 67.4 % (16.0-70.0); PLATELET COUNT 191 TH/MM3 (150-450); WHITE BLOOD COUNT 12.7 TH/MM3 (4.0-11.0)
[2016-08-01 06:01] LABS: BICARBONATE 27.6 MEQ/L (21.0-32.0); MAGNESIUM 1.9 MG/DL (1.5-2.5); POTASSIUM 3.8 MEQ/L (3.5-5.1)
[2016-08-01 08:00] VITALS: BP 104/57; PULSE 86; RESP 20; TEMP 97.9; O2SAT 95
--- NOTE | 2016-08-01 08:33 | PD.ORT.PN ---
Subjective Subjective Remarks No complaints. Lying in bed fairly comfortable. Walk yesterday and did well Objective Vitals Vital Signs Date Time Temp Pulse Resp B/P Pulse Ox O2 Delivery O2 Flow Rate FiO2 08/01/16 04:00 96.7 107 22 99/58 99 08/01/16 00:00 97.4 108 20 112/84 91 07/31/16 21:40 91 21 07/31/16 20:00 98.3 108 22 102/66 94 07/31/16 18:55 Room Air 07/31/16 17:05 106 07/31/16 16:00 98.9 108 18 121/80 94 07/31/16 12:00 96.3 105 18 130/82 96 07/31/16 09:32 96 21 I/O 07/31/16 07/31/16 07/31/16 08/01/16 08/01/16 08/01/16 07:00 15:00 23:00 07:00 15:00 23:00 Intake Total 647 ml 480 ml 661 ml 480 ml Output Total 150 ml Balance 647 ml 330 ml 661 ml 480 ml Intake Oral 480 ml 408 ml 480 ml IV Total 647 ml 253 ml Output Urine Total 150 ml # Voids 0 2 # Bowel Movements 0 0 0 Result Diagram: 08/01/16 0439 08/01/16 0439 Procedures right DIPIKA, anterior Objective Remarks Sitting up in bed NAD RLE Hip dressing c/d/i, mild swelling, no erythema thigh and calf supple, no grimacing with palpation, neg homans +motor, normal +sens, +nvi Assessment & Plan Problem List: (1) Osteoarthritis of right hip Assessment and Plan POD#2 s/p R DIPIKA, anterior PO pain meds. Xarelto 10mg qd PT - R LE WBAT. anterior dipika precautions. Dressing: Change daily, by RN starting today D/C planning, snf tuesday. Stable orthopedically Basim Eckert MD Aug 01, 2016 08:33
[2016-08-01] MEDS: DOCUSATE SODIUM 100 MG CAP PO SCH ×2 (09:00→21:00)
[2016-08-01] MEDS: MULTIVITAMINS/MINERALS THERAPEUTIC TAB PO SCH ×2 (09:00→21:00)
[2016-08-01 12:00] VITALS: BP 109/79; PULSE 105; RESP 18; TEMP 98.6; O2SAT 95
[2016-08-01] MEDS: SODIUM CHLORIDE 0.9% FLUSH 10 ML FLUSH IV FLUSH SCH ×2 (12:54→21:01)
[2016-08-01] MEDS: SODIUM CHLOR 0.45% 1000 ML INJ 1,000 ML IV SCH (12:59)
--- NOTE | 2016-08-01 14:53 | HHI.PR ---
Subjective Remarks In the chair, feel improved,. family at bedside. No fever or chills. Says she has difficulty swallowing. She used to get esophageal dilation with her GI doc back at home . Less confused today. Objective Vitals Vital Signs Date Time Temp Pulse Resp B/P Pulse Ox O2 Delivery O2 Flow Rate FiO2 08/01/16 12:00 98.6 105 18 109/79 95 08/01/16 08:00 95 Room Air 08/01/16 08:00 97.9 86 20 104/57 95 08/01/16 04:00 96.7 107 22 99/58 99 08/01/16 00:00 97.4 108 20 112/84 91 07/31/16 21:40 91 21 07/31/16 20:00 98.3 108 22 102/66 94 07/31/16 18:55 Room Air 07/31/16 17:05 106 07/31/16 16:00 98.9 108 18 121/80 94 I/O 07/31/16 07/31/16 07/31/16 08/01/16 08/01/16 08/01/16 07:00 15:00 23:00 07:00 15:00 23:00 Intake Total 647 ml 480 ml 661 ml 480 ml Output Total 150 ml Balance 647 ml 330 ml 661 ml 480 ml Intake Oral 480 ml 408 ml 480 ml IV Total 647 ml 253 ml Output Urine Total 150 ml # Voids 0 2 # Bowel Movements 0 0 0 Result Diagram: 08/01/16 0439 08/01/16 0439 Imaging Last Impressions Hip and Pelvis X-Ray 07/30/16 0000 Signed Impressions: Service Date/Time: Saturday, July 30, 2016 17:58 - CONCLUSION: Right hip arthroplasty. Deshaun Dickinson MD Hip X-Ray 07/30/16 0000 Signed Impressions: Service Date/Time: Saturday, July 30, 2016 14:39 - CONCLUSION: Appropriate postoperative appearance of the right hip status post total arthroplasty. Bernard Kahn MD Chest X-Ray 07/30/16 0000 Signed Impressions: Service Date/Time: Saturday, July 30, 2016 19:14 - CONCLUSION: No acute disease. Deshaun Dickinson MD Objective Remarks GENERAL: This is a well-nourished, well-developed patient, in no apparent distress. Less confused today. SKIN: No rashes, ecchymoses or lesions. Cool and dry. HEAD: Atraumatic. Normocephalic. No temporal or scalp tenderness. EYES: Pupils equal round and reactive. Extraocular motions intact. No scleral icterus. No injection or drainage. ENT: Nose without bleeding, purulent drainage or septal hematoma. Throat without erythema, tonsillar hypertrophy or exudate. Uvula midline. Airway patent. NECK: Trachea midline. No JVD or lymphadenopathy. Supple, nontender, no meningeal signs. CARDIOVASCULAR: Regular rate and rhythm without murmurs, gallops, or rubs. RESPIRATORY: Clear to auscultation. Breath sounds equal bilaterally. No wheezes , rales, or rhonchi. GASTROINTESTINAL: Abdomen soft, non-tender, nondistended. No hepato-splenomegaly , or palpable masses. No guarding. MUSCULOSKELETAL: S/p surgery right hip, dressing C/D/I, no erythema, mild edema. Extremities without clubbing, cyanosis, or edema. No joint tenderness, effusion, or edema noted. No calf tenderness. Negative Homans sign bilaterally. NEUROLOGICAL: Awake and alert. Cranial nerves II through XII intact. Motor and sensory grossly within normal limits. Five out of 5 muscle strength in all muscle groups. Normal speech. A/P Assessment and Plan Osteoarthritis left hip: S/p R JAYDE, anterior by Dr Tarah mcgee on 07/30/16 D/C VISUAL COORDINATOR - change to po pain meds. Patient is noted confused and disoriented Xarelto 10mg qd PT - R LE WBAT. anterior jayde precautions. Nausea: Antiemetics as need. Constipation: Laxatives/stool softeners POss UTI. UA reviewed. Poss UTI. Urine cultures are pending. On rocephin IV. Monitor Dysphagia: Had esophageal dialtion in the past. Will do swallow eval. Will consult GI. 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 CXR is normal no signs of infection, no leukocytosis. VSS. Trop is neg and patient doesn't complain of any chest pain. Restart home medications. Currently on VISUAL COORDINATOR, plan to transition to PO meds for pain. Monitor the patient. If continues to be confused and with flight of idea consider consulting psychiatry service. Discharge plan per ortho : DC to SNF on Tuesday. Discussed with the patient, nurse. Maira Silverio MD Aug 01, 2016 14:53
[2016-08-01] MEDS ORDERED: ALUMINUM/MAGNESIUM/SIMETH 30 ML CUP PO PRN (16:15)
[2016-08-01] MEDS ORDERED: ALUMINUM/MAGNESIUM/SIMETH 30 ML CUP PO ONE (16:15)
[2016-08-01] MEDS: ONDANSETRON HCL 4 MG/2 ML VIAL IV PRN ×2 (16:35→20:51)
[2016-08-01] MEDS: MORPHINE SULFATE 8 MG/ML INJ IV PUSH PRN ×2 (16:35→20:52)
--- NOTE | 2016-08-01 16:40 | PD.CONS ---
HPI History of Present Illness Mrs. Raines is an 89 year old WF with HTN, osteoarthritis, CAD with hx of MN, GERD and hx of dysphagia. Pt was admitted on 07/30/16 for an elective right total hip replacement with Dr. Rascon. Post-operative day 2 the pt has been complaining of abdominal pain, nausea and regurgitation after food intake as well as dysphagia to pills. The pt is somewhat of a difficult historian and its unclear if the pt has any baseline dementia. She tells me that she has had issues for many years with abd pain, nausea and regurgitation which occurs after food intake. She is regurgitating small amount of liquified food while I am in the room. She complains of pain in her abdomen but is unable to describe this to me only that it "doesn't feel good." She is unable to provide much information regarding the dysphagia. The nurse states that the pt has had problems with pills which required crushing them and putting the pills in applesauce. The pt is unable to tell me if this occurs with food and/or fluids as well. She states that she used to see a sales applications engineer in [place] for these symptoms and would periodically have EGD with dilation performed. Initially she told me her last procedure was around 2-3 months ago and that she is due for this to be done and then later in out discussion she tells me it has been 4 years since she has been in [place] so that must have been when her last EGD was performed. Pt reports that she has chronic issues with constipation but she did have a BM yesterday per nursing staff. She denies any chest pain, SOB, palpitations, dizziness or weakness. She states that her post- operative pain is controlled currently. (Vero Hall) PFSH Past Medical History HTN CAD with hx of MN GERD Reported hx of PUD Reported hx of esophageal strictures Osteoarthritis Hypothyroidism DDD Past Surgical History Right DIPIKA on 07/30/[address] Rascon CABG x 2 Bilateral knee surgeries Partial hysterectomy Cholecystectomy Appendectomy Exploratory abdominal surgery Pt reports that she had surgery to remove some ribs remotely Cataract surgery (Vero Hall) Coded Allergies: Contrast Media (Verified Allergy, Severe, unknown, 07/29/16) Nitroglycerin (Verified Adverse Reaction, Severe, PT GETS TACHYCARDIA, ) Medications Metoprolol Tartrate 25 Mg Tab 25 Mg PO DAILY Nexium (Esomeprazole DR) 40 Mg Capdr 40 Mg PO BID Levothyroxine (Levothyroxine Sodium) 100 Mcg Tab 100 Mcg PO DAILY Hydrocodone-Acetaminophen 5-325 mg Tab 2 Tab PO Q8HR PRN Family History Noncontributory Social History No reported alcohol, tobacco or illicit drug use (Vero Hall) Review of Systems Constitutional: DENIES: Fever, Chills Eyes: DENIES: Blurred vision Respiratory: DENIES: Cough, Shortness of breath Cardiovascular: DENIES: Chest pain, Palpitations Gastrointestinal: COMPLAINS OF: Abdominal pain, Constipation, Nausea, Vomiting , Difficulty Swallowing Genitourinary: DENIES: Dysuria Musculoskeletal: COMPLAINS OF: Joint pain Integumentary: DENIES: Rash Neurologic: DENIES: Localized weakness Psychiatric: COMPLAINS OF: Confusion (Vero Hall) GI Exam Vitals I&O Vital Signs Date Time Temp Pulse Resp B/P Pulse Ox O2 Delivery O2 Flow Rate FiO2 08/01/16 12:00 98.6 105 18 109/79 95 08/01/16 08:00 95 Room Air 08/01/16 08:00 97.9 86 20 104/57 95 08/01/16 04:00 96.7 107 22 99/58 99 08/01/16 00:00 97.4 108 20 112/84 91 07/31/16 21:40 91 21 07/31/16 20:00 98.3 108 22 102/66 94 07/31/16 18:55 Room Air 07/31/16 17:05 106 I/O 07/31/16 07/31/16 07/31/16 08/01/16 08/01/16 08/01/16 07:00 15:00 23:00 07:00 15:00 23:00 Intake Total 647 ml 480 ml 661 ml 480 ml Output Total 150 ml Balance 647 ml 330 ml 661 ml 480 ml Intake Oral 480 ml 408 ml 480 ml IV Total 647 ml 253 ml Output Urine Total 150 ml # Voids 0 2 # Bowel Movements 0 0 0 Imaging Last Impressions Hip and Pelvis X-Ray 07/30/16 0000 Signed Impressions: Service Date/Time: Saturday, July 30, 2016 17:58 - CONCLUSION: Right hip arthroplasty. Deshaun Dickinson MD Hip X-Ray 07/30/16 0000 Signed Impressions: Service Date/Time: Saturday, July 30, 2016 14:39 - CONCLUSION: Appropriate postoperative appearance of the right hip status post total arthroplasty. Bernard Kahn MD Chest X-Ray 07/30/16 0000 Signed Impressions: Service Date/Time: Saturday, July 30, 2016 19:14 - CONCLUSION: No acute disease. Deshaun Dickinson MD Laboratory Test 07/31/16 08/01/16 17:35 04:39 Ammonia 15 MCMOL/L White Blood Count 12.7 TH/MM3 Red Blood Count 4.00 MIL/MM3 Hemoglobin 11.8 GM/DL Hematocrit 35.6 % Mean Corpuscular Volume 88.9 FL Mean Corpuscular Hemoglobin 29.6 PG Mean Corpuscular Hemoglobin 33.3 % Concent Red Cell Distribution Width 14.0 % Platelet Count 191 TH/MM3 Mean Platelet Volume 8.2 FL Neutrophils (%) (Auto) 67.4 % Lymphocytes (%) (Auto) 16.6 % Monocytes (%) (Auto) 12.9 % Eosinophils (%) (Auto) 2.7 % Basophils (%) (Auto) 0.4 % Neutrophils # (Auto) 8.6 TH/MM3 Lymphocytes # (Auto) 2.1 TH/MM3 Monocytes # (Auto) 1.6 TH/MM3 Eosinophils # (Auto) 0.3 TH/MM3 Basophils # (Auto) 0.0 TH/MM3 CBC Comment DIFF FINAL Differential Comment Sodium Level 138 MEQ/L Potassium Level 3.8 MEQ/L Chloride Level 101 MEQ/L Carbon Dioxide Level 27.6 MEQ/L Anion Gap 9 MEQ/L Blood Urea Nitrogen 11 MG/DL Creatinine 0.84 MG/DL Estimat Glomerular Filtration 64 ML/MIN Rate Random Glucose 118 MG/DL Calcium Level 8.5 MG/DL Magnesium Level 1.9 MG/DL Date/Time Procedure Status Source Growth 07/31/16 15:40 Urine Culture - Preliminary Resulted Urine Clean Catch NO GROWTH IN 24 HOURS. Physical Examination HEENT: Pupils round and reactive to light; normocephalic; atraumatic; no jaundice. Throat is clear. NECK: Neck is supple. CHEST: CTA CARDIAC: Regular ABDOMEN: +Bs, soft, nondistended, mild upper abdominal tenderness. EXTREMITIES: No clubbing, cyanosis, or edema. SKIN: Normal; no rash; no jaundice. CARDIOVASCULAR TECHNOLOGIST: No focal deficits; Awake and alert, poor historian (Vero Hall) Assessment and Plan Plan ASSESSMENT: - Post-prandial abdominal pain/nausea/regurgitation and dysphagia. Pt reports that she has had longstanding issues with post-prandial pain/nausea/ regurgitation which she had previously followed with a GI physician in [place] and had repeat EGD with dilations for esophageal strictures. Its unclear how long it has been since her last procedure but it sounds likely to be closer to 4 years ago. She states that at one point she was having them every 2-3 months. Pt is on Nexium BID at home. - POD #2 from right total hip arthroplasty with Dr. Rascon. Pt was started on Xarelto for DVT prophylaxis on 07/31. - HTN, CAD. Per attending. PLAN: - Discussed with nurse that the pts medical attending needs to be called about the need to hold the Xarelto in anticipation for EGD +/- dilation when able to be performed once safely off the Xarelto. The pt may need short active DVT prophylaxis with Lovenox or Heparin in the mean time. The nurse will discuss this with the medical team. - In the meantime we will plan for evaluation with Barium Swallow - Add Protonix 40mg IV BID - Zofran PRN, first dose now - Maalox PRN - ST has been consulted for swallow evaluation as well. - Monitor labs - Supportive care - Further recs as the case develops - The pt was seen and examined by myself and Dr. Leslie, this note was written on her behalf. (Vero Hall) Physician Comments seen, examined agree with above constipation-stool softeners abdominal [id number] multiple abdominal ct in the last 1 year (Court Leslie MD) Vero Hall Aug 01, 2016 16:40 Court Leslie MD Aug 01, 2016 17:30
[2016-08-01] MEDS: PANTOPRAZOLE SODIUM 40 MG VIAL IV PUSH SCH (18:00)
[2016-08-01 20:00] VITALS: BP 98/70; PULSE 103; RESP 22; TEMP 97.8; O2SAT 97
[2016-08-01] MEDS: cefTRIAXone INJ 1,000 MG in SODIUM CHLORIDE 0.9% INJ 100 ML IV SCH (21:00)
[2016-08-01] MEDS: ENOXAPARIN SODIUM 40 MG/0.4 ML SYRINGE SQ SCH (21:00)
[2016-08-02] VITALS (8 sets, daily range): BP systolic 83–121; BP diastolic 50–72; PULSE 50–114; RESP 12–22; TEMP 97.3–100.5; O2SAT 91–96
[2016-08-02] MEDS: SODIUM CHLOR 0.45% 1000 ML INJ 1,000 ML IV SCH ×2 (00:35→13:55)
[2016-08-02] MEDS: PANTOPRAZOLE SODIUM 40 MG VIAL IV PUSH SCH ×2 (05:21→16:59)
[2016-08-02] MEDS: MORPHINE SULFATE 8 MG/ML INJ IV PUSH PRN ×2 (05:22→10:41)
[2016-08-02] MEDS: LEVOTHYROXINE SODIUM 100 MCG TAB PO SCH (05:23)
[2016-08-02 07:21] LABS: AUTOMATED NEUTROPHIL # 9.2 TH/MM3 (1.8-7.7); BASOPHIL % 0.2 % (0.0-2.0); EOSINOPHIL # 0.3 TH/MM3 (0-0.4); EOSINOPHIL % 2.7 % (0.0-4.0); HEMATOCRIT 34.4 % (35.0-46.0); HEMO FLAGS DIFF FINAL; LYMPH % 11.7 % (9.0-44.0); LYMPHOCYTE # 1.4 TH/MM3 (1.0-4.8); MEAN CELL VOLUME 88.7 FL (80.0-100.0); MEAN CORPUSCULAR HEMOGLOBIN 29.6 PG (27.0-34.0); MEAN CORPUSCULAR HGB CONC 33.4 % (32.0-36.0); MONO % 10.5 % (0.0-8.0); NEUT % 74.9 % (16.0-70.0); PLATELET COUNT 202 TH/MM3 (150-450); RED BLOOD COUNT 3.87 MIL/MM3 (4.00-5.30); RED CELL DISTRIBUTION WIDTH 14.5 % (11.6-17.2); WHITE BLOOD COUNT 12.2 TH/MM3 (4.0-11.0)
[2016-08-02 07:48] LABS: BICARBONATE 29.1 MEQ/L (21.0-32.0); POTASSIUM 4.3 MEQ/L (3.5-5.1)
[2016-08-02] MEDS: DOCUSATE SODIUM 100 MG CAP PO SCH ×2 (09:00→20:33)
[2016-08-02] MEDS: MULTIVITAMINS/MINERALS THERAPEUTIC TAB PO SCH ×2 (09:00→20:33)
[2016-08-02] MEDS: SODIUM CHLORIDE 0.9% FLUSH 10 ML FLUSH IV FLUSH SCH ×2 (09:00→20:34)
--- NOTE | 2016-08-02 10:04 | HHI.GIFU ---
Subjective Remarks Pt resting in bed. She is naked and is manually removing stool from rectum. She denies nausea/vomiting/abdominal pain. She denies constipation, but nurse states she has not had a bowel movement in several days. Barium swallow pending. (Meredith Leahy) Objective Vitals I&O Vital Signs Date Time Temp Pulse Resp B/P Pulse Ox O2 Delivery O2 Flow Rate FiO2 08/02/16 04:00 100.5 114 20 121/69 96 08/02/16 00:00 97.6 107 20 112/63 94 08/01/16 20:00 97.8 103 22 98/70 97 08/01/16 18:47 Room Air 08/01/16 12:00 98.6 105 18 109/79 95 I/O 08/01/16 08/01/16 08/01/16 08/02/16 08/02/16 08/02/16 07:00 15:00 23:00 07:00 15:00 23:00 Intake Total 480 ml 600 ml 120 ml 0 ml Output Total 2 ml Balance 480 ml 600 ml 120 ml -2 ml Intake Oral 480 ml 600 ml 120 ml 0 ml Output Urine Total 2 ml # Voids 2 2 1 # Bowel Movements 0 0 0 0 Laboratory Laboratory Tests Test 08/02/16 06:47 White Blood Count 12.2 Red Blood Count 3.87 Hemoglobin 11.5 Hematocrit 34.4 Mean Corpuscular Volume 88.7 Mean Corpuscular Hemoglobin 29.6 Mean Corpuscular Hemoglobin 33.4 Concent Red Cell Distribution Width 14.5 Platelet Count 202 Mean Platelet Volume 8.0 Neutrophils (%) (Auto) 74.9 Lymphocytes (%) (Auto) 11.7 Monocytes (%) (Auto) 10.5 Eosinophils (%) (Auto) 2.7 Basophils (%) (Auto) 0.2 Neutrophils # (Auto) 9.2 Lymphocytes # (Auto) 1.4 Monocytes # (Auto) 1.3 Eosinophils # (Auto) 0.3 Basophils # (Auto) 0.0 CBC Comment DIFF FINAL Differential Comment Sodium Level 137 Potassium Level 4.3 Chloride Level 101 Carbon Dioxide Level 29.1 Anion Gap 7 Blood Urea Nitrogen 10 Creatinine 0.66 Estimat Glomerular Filtration 85 Rate Random Glucose 108 Calcium Level 8.5 Date/Time Procedure Status Source Growth 07/31/16 15:40 Urine Culture - Final Complete Urine Clean Catch NO GROWTH IN 48 HOURS. Imaging Last Impressions Hip and Pelvis X-Ray 07/30/16 0000 Signed Impressions: Service Date/Time: Saturday, July 30, 2016 17:58 - CONCLUSION: Right hip arthroplasty. Deshaun Dickinson MD Hip X-Ray 07/30/16 0000 Signed Impressions: Service Date/Time: Saturday, July 30, 2016 14:39 - CONCLUSION: Appropriate postoperative appearance of the right hip status post total arthroplasty. Bernard Kahn MD Chest X-Ray 07/30/16 0000 Signed Impressions: Service Date/Time: Saturday, July 30, 2016 19:14 - CONCLUSION: No acute disease. Deshaun Dickinson MD Physical Exam HEENT: Normocephalic; atraumatic; no jaundice. CHEST: CTA CARDIAC: RRR ABDOMEN: Soft, nondistended, nontender; no hepatosplenomegaly; bowel sounds are present in all four quadrants. EXTREMITIES: No clubbing, cyanosis, or edema. SKIN: Normal; no rash; no jaundice. DIRECTOR OF CAREER RESOURCES: No focal deficits; alert, confused. (Meredith Leahy) Assessment and Plan Plan ASSESSMENT: - Post-prandial abdominal pain/nausea/regurgitation and dysphagia. Pt reports that she has had longstanding issues with post-prandial pain/nausea/ regurgitation which she had previously followed with a GI physician in [place] and had repeat EGD with dilations for esophageal strictures. Its unclear how long it has been since her last procedure but it sounds likely to be closer to 4 years ago. She states that at one point she was having them every 2-3 months. Pt is on Nexium BID at home. Scheduled for Barium Swallow today. - Constipation. Check for impaction. Fleets enema x 1. Miralax daily. - POD #3 from right total hip arthroplasty with Dr. Rascon. Pt was started on Xarelto for DVT prophylaxis on 07/31, but this was changed to lovenox. . - HTN, CAD. Per attending. PLAN: - CAT - Await Barium Swallow - Consider EGD +/- Dilatation tomorrow, based on results of above - Will make NPO after MN and hold lovenox after MN - Protonix 40mg IV BID - Zofran PRN, first dose now - Check patient for impaction - Miralax 17gram po daily - Fleets enema x 1 - ST - Monitor labs - Supportive care - Further recs as the case develops - The pt was seen and examined by myself and Dr. Kamara, this note was written on his behalf. (Meredith Leahy) Physician Comments Patient seen and examined Agree with above Continue with current supportive care Monitor labs We will proceed with an EGD and dilation tomorrow (Samir Kamara MD) Meredith Leahy Aug 02, 2016 10:04 Samir Kamara MD Aug 03, 2016 00:23
[2016-08-02] MEDS: POLYETHYLENE GLYCOL 17 GM PKG PO SCH (10:15)
[2016-08-02] MEDS ORDERED: SOD PHOSPHATE/SOD BIPHOSPHATE (ADULT) ENEMA 133ML RECTAL ONE (10:15)
--- NOTE | 2016-08-02 12:56 | PD.ORT.PN ---
Subjective Subjective Remarks Sitting up in a chair. Mild low back and hip pain. sHe participated w physical therapy but reports some lower extremity weakness. Objective Vitals Vital Signs Date Time Temp Pulse Resp B/P Pulse Ox O2 Delivery O2 Flow Rate FiO2 08/02/16 08:00 99.9 106 21 83/50 95 08/02/16 04:00 100.5 114 20 121/69 96 08/02/16 00:00 97.6 107 20 112/63 94 08/01/16 20:00 97.8 103 22 98/70 97 08/01/16 18:47 Room Air I/O 08/01/16 08/01/16 08/01/16 08/02/16 08/02/16 08/02/16 07:00 15:00 23:00 07:00 15:00 23:00 Intake Total 480 ml 600 ml 120 ml 0 ml Output Total 2 ml Balance 480 ml 600 ml 120 ml -2 ml Intake Oral 480 ml 600 ml 120 ml 0 ml Output Urine Total 2 ml # Voids 2 2 1 # Bowel Movements 0 0 0 0 Result Diagram: 08/02/16 0647 08/02/16 0647 Procedures right DIPIKA, anterior Objective Remarks Sitting up in bed NAD RLE Hip dressing c/d/i, mild swelling, no erythema thigh and calf supple, neg homans +motor, normal +sens, +nvi Assessment & Plan Problem List: (1) Osteoarthritis of right hip Assessment and Plan POD#3 s/p R DIPIKA, anterior issues swallowing food. h/o of dysphasia in the past. PO pain meds. Xarelto 10mg qd PT - RLE WBAT. anterior dipika precautions. Dressing: Change daily, by RN D/C planning, snf dc pending clearance from swallow studies Stable orthopedically to dc f/u Dr Rascon 2 weeks. [id number]. rx in chart Robbie Rascon Jr., MD Aug 02, 2016 12:56
--- NOTE | 2016-08-02 13:28 | RADRPT ---
EXAM DATE/TIME: 08/02/2016 11:45 [facility] COMPARISON: No previous studies available for comparison. INDICATIONS : Dysphagia, food and liquids get stuck in throat, acid reflux for many years FLUORO TIME: 1.2 minutes IMAGE COUNT: 17 CONTRAST: 1. Liquid E-Z Paque Barium Sulfate (60% w/v, 41% w.w) MEDICAL HISTORY : Gastroesophageal reflux disease. SURGICAL HISTORY : right hip replacement ENCOUNTER: Initial ACUITY: >1 year PAIN SCORE: 5/10 LOCATION: Left esopha kamran FINDINGS: A limited solid column barium swallow was performed. The patient was unable to stand and could not ro ll secondary to pain. Deglutition is grossly unremarkable with no evidence of aspiration. The proxima l and mid esophagus are mildly dilated and there are secondary tertiary contractions consistent with dysmotility. The patient is status post median sternotomy. There is a small reducible hiatal hernia. Distal esophagus was narrowed measuring up to approximately 1 cm. There is no definite filling defect or ulceration. CONCLUSION: 1. Limited suboptimal exam. 2. The distal esophagus appears persistently narrowed which could indicate a stricture. This measured up to 1 cm in greatest diameter. 3. Small reducible hiatal hernia. 4. 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 Adam Osorio MD on August 02, 2016 at 13:24 Board Certified Radiologist. This report was verified electronically.
--- NOTE | 2016-08-02 15:49 | HHI.PR ---
Subjective Remarks Follow up s/p R anterior DIPIKA; dysphagia and barium swallow. Patient seen and examined by myself and Dr. Silverio. Patient sleeping comfortably in bed. Awakens to voice. Alert to self. Complaints of mild sharp chest pain associated with breathing. Stat EKG and troponin pending. Denies any further difficulty swallowing, does admit to poor appetite. Denies any fever, chills, shortness of breath or cough. Febrile overnight. Objective Vitals Vital Signs Date Time Temp Pulse Resp B/P Pulse Ox O2 Delivery O2 Flow Rate FiO2 08/02/16 08:00 99.9 106 21 83/50 95 08/02/16 04:00 100.5 114 20 121/69 96 08/02/16 00:00 97.6 107 20 112/63 94 08/01/16 20:00 97.8 103 22 98/70 97 08/01/16 18:47 Room Air I/O 08/01/16 08/01/16 08/01/16 08/02/16 08/02/16 08/02/16 07:00 15:00 23:00 07:00 15:00 23:00 Intake Total 480 ml 600 ml 120 ml 0 ml Output Total 2 ml Balance 480 ml 600 ml 120 ml -2 ml Intake Oral 480 ml 600 ml 120 ml 0 ml Output Urine Total 2 ml # Voids 2 2 1 # Bowel Movements 0 0 0 0 Result Diagram: 08/02/16 0647 08/02/16 0647 Imaging Last Impressions Barium Swallow X-Ray 08/02/16 0000 Signed Impressions: Service Date/Time: Tuesday, August 02, 2016 11:45 - CONCLUSION: 1. Limited suboptimal exam. 2. The distal esophagus appears persistently narrowed which could indicate a stricture. This measured up to 1 cm in greatest diameter. 3. Small reducible hiatal hernia. 4. 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 Adam Osorio MD Hip and Pelvis X-Ray 07/30/16 0000 Signed Impressions: Service Date/Time: Saturday, July 30, 2016 17:58 - CONCLUSION: Right hip arthroplasty. Deshaun Dickinson MD Hip X-Ray 07/30/16 0000 Signed Impressions: Service Date/Time: Saturday, July 30, 2016 14:39 - CONCLUSION: Appropriate postoperative appearance of the right hip status post total arthroplasty. Bernard Kahn MD Chest X-Ray 07/30/16 0000 Signed Impressions: Service Date/Time: Saturday, July 30, 2016 19:14 - CONCLUSION: No acute disease. Deshaun Dickinson MD Objective Remarks GENERAL: Well-nourished, well-developed patient, in NAD. SKIN: No rashes, ecchymoses or lesions. Cool and dry. HEENT: Atraumatic. Normocephalic. No temporal or scalp tenderness. Pupils equal round and reactive. Extraocular motions intact. Nose without bleeding, purulent drainage or septal hematoma. Airway patent. NECK: Trachea midline. No JVD or lymphadenopathy. Supple, nontender, no meningeal signs. CARDIOVASCULAR: Regular rate and rhythm without murmurs, gallops, or rubs. RESPIRATORY: CTA. Breath sounds equal bilaterally. No wheezes, rales, or rhonchi. GASTROINTESTINAL: Abdomen soft, non-tender, nondistended. No hepato-splenomegaly , or palpable masses. No guarding. MUSCULOSKELETAL: S/p surgery right hip, dressing c/d/i, no erythema, mild edema. Extremities without clubbing, cyanosis, or edema. No joint tenderness, effusion, or edema noted. NEUROLOGICAL: Awake and alert. Cranial nerves II through XII intact. Motor and sensory grossly within normal limits. Five out of 5 muscle strength in all muscle groups. Normal speech. A/P Assessment and Plan This is an 89-year-old female with multiple medical problems including hypertension, osteoarthritis, CAD with HI history, GERD, hx of dysphagia and esophageal strictures who came in for elective surgery of the left hip surgery by Dr. Rascon. Osteoarthritis left hip, s/p right DIPIKA, anterior by Dr Rascon ortho on 07/30/16: - [employer] dc'd. Percocet PO PRN per pain scale, Morphine IV for breakthrough pain. - Xarelto dc'd, changed to Lovenox for possible EGD and dilation tomorrow , per GI recommendation. Will restart Xarelto upon discharge per Dr. Rascon recommendations. Atypical chest pain, recurrent: Stat EKG and troponin ordered, troponin <0.02. Previous troponin < 0.02. Monitor closely. EKG pending. Leukocytosis: WBC 12.2, CBC in am. Low grade temps overnight. Urine cultures NGTD. DC Rocephin. Nausea: Antiemetics PRN Constipation: Continue laxatives/stool softeners. Patient refusing fleets enema. Dysphagia: Barium swallow study report noted, distal esophagus appears persistently narrowed which could indicate a stricture, measuring 1 cm at its greatest diameter; esophageal dysmotility with mild dilatation of the upper and mid esophagus. GI following. Possible EGD and/or dilatation tomorrow, appreciate input. Swallow evaluation performed, no aspiration noted, regular diet with thin liquids recommended. 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 Written by Martha Becker, acting as scribe for Dr. Silverio on 08/02/16 at 14:20. This note was transcribed by scribe Martha RO. I, Dr. Maira Silverio personally performed the history, physical exam, and medical decision making; and confirmed the accuracy of the information in the transcribed note. Authenticated by Dr. Maira Silverio on 08/02/16 at 14:20. Discharge Planning Discharge plan once GI workup complete and per ortho recommendations. Martha Becker Aug 02, 2016 15:49 Maira Silverio MD Aug 02, 2016 17:41
[2016-08-02] MEDS: oxyCODONE/ACETAMINOPHEN 5 MG/325 MG TAB PO PRN (17:00)
[2016-08-02] MEDS: ENOXAPARIN SODIUM 40 MG/0.4 ML SYRINGE SQ SCH (20:33)
[2016-08-02] MEDS ORDERED: LACTATED RINGER'S 1000 ML IV PRN (23:45)
[2016-08-02] MEDS ORDERED: METOPROLOL TARTRATE 25 MG TAB PO PRN (23:45)
[2016-08-02] MEDS ORDERED: CHLORHEXIDINE GLUCONATE 2 % 1 PACK (2 CLOTHS) TOPICAL PRN (23:45)
[2016-08-02] MEDS ORDERED: INSULIN HUMAN REGULAR 1,000 UNITS/10 ML VIAL SQ PRN (23:45)
[2016-08-03] VITALS: BP 108/63; PULSE 94; RESP 17; TEMP 97.8; O2SAT 96
[2016-08-03] MEDS: oxyCODONE/ACETAMINOPHEN 5 MG/325 MG TAB PO PRN ×2 (01:39→09:24)
[2016-08-03] MEDS: SODIUM CHLOR 0.45% 1000 ML INJ 1,000 ML IV SCH (03:15)
[2016-08-03 04:00] VITALS: BP 99/55; PULSE 68; RESP 17; TEMP 97.5; O2SAT 95
[2016-08-03] MEDS: LEVOTHYROXINE SODIUM 100 MCG TAB PO SCH (06:00)
[2016-08-03 06:24] LABS: BASOPHIL % 0.4 % (0.0-2.0); EOSINOPHIL # 0.5 TH/MM3 (0-0.4); EOSINOPHIL % 5.5 % (0.0-4.0); HEMATOCRIT 32.8 % (35.0-46.0); HEMO FLAGS DIFF FINAL; LYMPH % 21.5 % (9.0-44.0); LYMPHOCYTE # 2.1 TH/MM3 (1.0-4.8); MEAN CELL VOLUME 87.8 FL (80.0-100.0); MEAN CORPUSCULAR HEMOGLOBIN 31.2 PG (27.0-34.0); MEAN CORPUSCULAR HGB CONC 35.5 % (32.0-36.0); MONO % 10.3 % (0.0-8.0); NEUT % 62.3 % (16.0-70.0); PLATELET COUNT 245 TH/MM3 (150-450); RED BLOOD COUNT 3.73 MIL/MM3 (4.00-5.30); RED CELL DISTRIBUTION WIDTH 14.2 % (11.6-17.2); WHITE BLOOD COUNT 9.7 TH/MM3 (4.0-11.0)
[2016-08-03] MEDS: PANTOPRAZOLE SODIUM 40 MG VIAL IV PUSH SCH (06:30)
[2016-08-03 06:43] LABS: BICARBONATE 29.2 MEQ/L (21.0-32.0); POTASSIUM 3.9 MEQ/L (3.5-5.1)
[2016-08-03 08:00] VITALS: BP 110/62; PULSE 87; RESP 18; TEMP 96.9; O2SAT 96
[2016-08-03] MEDS: MULTIVITAMINS/MINERALS THERAPEUTIC TAB PO SCH (09:00)
[2016-08-03] MEDS: POLYETHYLENE GLYCOL 17 GM PKG PO SCH (09:00)
[2016-08-03] MEDS: DOCUSATE SODIUM 100 MG CAP PO SCH (09:00)
--- NOTE | 2016-08-03 09:01 | EKG ---
Date Performed: 08/02/2016 Time Performed: 14:41:35 PTAGE: 89 years EKG: SINUS TACHYCARDIA BORDERLINE LEFT AXIS DEVIATION NONSPECIFIC T-WAVE ABNORMALITY ABNORMAL [facility] ECG PREVIOUS TRACING : 07/30/2016 19.16 Compared to previous tracing, heart rate has increased. DOCTOR: Pérez Lilly Interpretating Date/Time 08/03/2016 08:59:52
[2016-08-03] MEDS: SODIUM CHLORIDE 0.9% FLUSH 10 ML FLUSH IV FLUSH SCH (09:23)
[2016-08-03 11:50] VITALS: BP 115/68; PULSE 93; RESP 18; TEMP 98.4
[2016-08-03] MEDS ORDERED: PROPOFOL 200 MG/20 ML AMP IV ONE (13:49)
--- NOTE | 2016-08-03 13:59 | PD.PROCEDR ---
GI Procedure REFERRING PHYSICIAN Andres WARNER PERFORMED EGD with biopsy and dilation over savory guidewire INDICATION FOR PROCEDURE Dysphagia and abdominal pain esophageal stricture PROCEDURE: The procedure, risks and benefits were discussed with Ms. Raines and informed consent was obtained. Anesthesia sedated her with Diprivan. She was placed in the left lateral decubitus position. EGD: The Pentax videoscope was introduced through the oropharynx and advanced to the second portion of the duodenum under direct visualization. Retroflexion was performed in the stomach. FINDINGS: The esophagus there was a distal esophageal stricture and a mild to moderate Schatzki ring the mucosa was otherwise unremarkable a guidewire was placed and using the savory dilator size 17 Hebrew I dilated the esophagus postdilatation view reveals a small mucosal rent otherwise unremarkable The stomach there was patchy erythema in the antrum but no ulcerations or erosions the rest of the gastric mucosa was unremarkable antral biopsies were taken for further evaluation and an old clip was noted to still be attached to the gastric body mucosa The duodenum there were 3 ulcers noted in the duodenal bulb and duodenal sweep moderately sized clean base no visible vessel biopsies were taken for further evaluation ESTIMATED BLOOD LOSS: None SPECIMENS REMOVED: Antral biopsies and duodenal biopsies COMPLICATIONS: None IMPRESSION: Esophageal stricture Schatzki ring Gastritis Duodenal ulcers PLAN: Await biopsy Avoid NSAIDs and aspirin Continue PPI twice a day Follow up with GI clinic in 4 weeks EGD in 2 months Samir Kamara MD Aug 03, 2016 13:59
[2016-08-03 14:06] VITALS: BP 127/69; PULSE 93; RESP 16; TEMP 98.4; O2SAT 95
== END 2016-08-03 16:41 | DRG 470 ==
LOC: HSDI 07-30 11:38 → N06A 07-30 20:55
PROVIDERS: ADMIT Orthopaedic Surgery; ATTEND Orthopaedic Surgery
PROC: 0SR90JA Replacement of Right Hip Joint with Synthetic Substitute, Uncemented, Open Approach (ICD-10-PCS; principal; 2016-07-30 14:00)
PROC: 0D738ZZ Dilation of Lower Esophagus, Via Natural or Artificial Opening Endoscopic (ICD-10-PCS; 2016-08-03)
PROC: 0DB68ZX Excision of Stomach, Via Natural or Artificial Opening Endoscopic, Diagnostic (ICD-10-PCS; 2016-08-03)
DX: M16.11 Unilateral primary osteoarthritis, right hip (principal); K26.9 Duodenal ulcer, unspecified as acute or chronic, without hemorrhage or perforation; G62.9 Polyneuropathy, unspecified; K22.2 Esophageal obstruction; I10 Essential (primary) hypertension; K21.9 Gastro-esophageal reflux disease without esophagitis; I25.10 Atherosclerotic heart disease of native coronary artery without angina pectoris; K59.00 Constipation, unspecified; R13.10 Dysphagia, unspecified; K29.70 Gastritis, unspecified, without bleeding; E03.9 Hypothyroidism, unspecified; Z87.891 Personal history of nicotine dependence; Z95.1 Presence of aortocoronary bypass graft
CPT/HCPCS: 71010; 73502; 74230; 76000; 80048; 81001; 82140; 82550; 82552; 83735; 84484; 85025; 86850; 86900; 86901; 87086; 88305; 93005; 94150; C1769; C1776; C9113; C9290; J0690; J0696; J1170; J1580; J1650; J1885; J2270; J2370; J2405; J3370; J7050; J7120; Q0169

== ENCOUNTER 2016-11-02 15:52 | Emergency (ER) | payer MEDICARE, BC ==
[~2016-11-02 15:52] MED LIST changes: -HYDR-3516 PO; +PERC5TAB12 PO; +XARE10TA PO
[2016-11-02 15:57] VITALS: BP 107/63; PULSE 88; RESP 18; TEMP 98.3; O2SAT 97
--- NOTE | 2016-11-02 16:25 | PD ---
HPI Chief Complaint: Back/ Neck Pain or Injury Time Seen by Provider: 16:20 Travel History International Travel<30 days: No Contact w/Intl Traveler<30days: No Traveled to known affect area: No History of Present Illness HPI 89 -year-old female presents the emergency department via EMS, after being called by the home health aide who attends to this patient for bathing. Both EMS and the patient seem to be questioning why she is here emergently. Patient complains of chronic neck pain which she's had for months, as well as neuropathy pain, and generalized abdominal pain. Patient only takes hydrocodone which helped her pain this morning, Synthroid, and metoprolol for her blood pressure. She currently denies significant chest pain or shortness of breath. She has no fever, chills, nausea, vomiting, or changes in her urine. Patient states she is chronically constipated. She has complaints of a rash on her right upper arm and back which is being treated by her medical coding instructor. She has had no falls or other acute injuries. Patient lives alone with her who has dementia. She has regular home health visits. She is allergic to contrast media and nitroglycerin. PFSH Past Medical History Hx Anticoagulant Therapy: Yes (ASA) Cancer: Yes (BREAST CANCER RIGHT , CERVICAL) Cardiovascular Problems: Yes (CABG X2 1994) Chest Pain: Yes Coronary Artery Disease: Yes Diabetes: No Diminished Hearing: No Endocrine: No Gastrointestinal Disorders: Yes GERD: Yes Genitourinary: No Hepatitis: No Hiatal Hernia: No Hypertension: Yes Immune Disorder: No Musculoskeletal: Yes (CHRONIC BACK/NECK PAIN) Neurologic: Yes (NEUROPATHY FEET) Psychiatric: No Reproductive: No Respiratory: No Myocardial Infarction: Yes Renal Failure: No Thyroid Disease: Yes Ulcer: No ?: Not Menopausal: Yes Past Surgical History Abdominal Surgery: Yes (CHOLY) AICD: No Appendectomy: Yes Body Medical Devices: LOWER DENTAL IMPLANTS Cardiac Surgery: Yes (CABG X2, ) Cholecystectomy: Yes Coronary Artery Bypass Graft: Yes (double) Ear Surgery: No Endocrine Surgery: No Eye Surgery: Yes (CATARACT BILAT.) Genitourinary Surgery: No Gynecologic Surgery: Yes (HYSTERECTOMY,) Hysterectomy: Yes Joint Replacement: Yes (BILAT. KNEE REPL) Oral Surgery: No Pacemaker: No Thoracic Surgery: Yes (2 RIBS REMOVED) Family History Family Hypercholesterolemia: Yes Social History Alcohol Use: No Tobacco Use: No Substance Use: No Allergies-Medications (Allergen,Severity, Reaction): Coded Allergies: Contrast Media (Verified Allergy, Severe, unknown, 11/02/16) Nitroglycerin (Verified Adverse Reaction, Severe, PT GETS TACHYCARDIA, ) Reported Meds & Prescriptions Reported Meds & Active Scripts Active Percocet (Oxycodone-Acetaminophen) 5-325 mg Tab 1 Tab PO Q4H PRN Reported Metoprolol Tartrate 25 Mg Tab 25 Mg PO DAILY Nexium (Esomeprazole DR) 40 Mg Capdr 40 Mg PO BID Levothyroxine (Levothyroxine Sodium) 100 Mcg Tab 100 Mcg PO DAILY Review of Systems Except as stated in HPI: all other systems reviewed are Neg General / Constitutional: No: Fever Eyes: No: Visual changes HENT: No: Headaches Cardiovascular: No: Chest Pain or Discomfort Respiratory: No: Shortness of Breath Gastrointestinal: No: Abdominal Pain Genitourinary: No: Dysuria Musculoskeletal: No: Pain Skin: No Rash Neurologic: No: Weakness Psychiatric: No: Depression Endocrine: No: Polydipsia Hematologic/Lymphatic: No: Easy Bruising Physical Exam Exam Limitations: Poor Historian Narrative GENERAL: Patient appears in no acute distress. SKIN: Warm and dry. Normal color. Poor turgor with tenting present. Patient has a mild erythematous rough dry rash to the right upper arm. HEAD: Atraumatic. Normocephalic. EYES: Pupils equal and round. No scleral icterus. No injection or drainage. ENT: No nasal bleeding or discharge. Mucous membranes pink and dry. Pharynx is clear. Airway is patent. NECK: Trachea midline. No JVD. Supple and notable soft tissue tenderness with palpation. No bony tenderness or step-off deformity. CARDIOVASCULAR: Regular rate and rhythm. No murmurs appreciated today. RESPIRATORY: No accessory muscle use. Clear to auscultation. Breath sounds equal bilaterally. GASTROINTESTINAL: Abdomen soft, non-tender, nondistended. Hepatic and splenic margins not palpable. MUSCULOSKELETAL: Extremities without clubbing, cyanosis, or edema. No obvious deformities. NEUROLOGICAL: Awake and alert. No obvious cranial nerve deficits. Motor grossly within normal limits. Five out of 5 muscle strength in the arms and legs. Normal speech. PSYCHIATRIC: Appropriate mood and affect; insight and judgment normal. Data Data Last Documented VS Vital Signs Date Time Temp Pulse Resp B/P Pulse Ox O2 Delivery O2 Flow Rate FiO2 11/02/16 18:23 95 18 112/61 95 Room Air 11/02/16 15:57 98.3 Orders Complete Blood Count With Diff (11/02/16 16:44) Comprehensive Metabolic Panel (11/02/16 16:44) Urinalysis - C+S If Indicated (11/02/16 16:44) Iv Access Insert/Monitor (11/02/16 16:44) Ecg Monitoring (11/02/16 16:44) Oximetry (11/02/16 16:44) Sodium Chloride 0.9% Flush (Ns Flush) (11/02/16 16:45) Electrocardiogram (11/02/16 16:44) Urine Culture (11/02/16 17:30) Nitrofurantoin Monohyd Macrocr (Macrobid (11/02/16 19:00) Labs Laboratory Tests Test 11/02/16 11/02/16 17:10 17:30 White Blood Count 8.3 TH/MM3 Red Blood Count 4.82 MIL/MM3 Hemoglobin 13.5 GM/DL Hematocrit 40.9 % Mean Corpuscular Volume 84.8 FL Mean Corpuscular Hemoglobin 28.0 PG Mean Corpuscular Hemoglobin 33.0 % Concent Red Cell Distribution Width 13.6 % Platelet Count 279 TH/MM3 Mean Platelet Volume 8.0 FL Neutrophils (%) (Auto) 45.8 % Lymphocytes (%) (Auto) 31.8 % Monocytes (%) (Auto) 11.2 % Eosinophils (%) (Auto) 10.6 % Basophils (%) (Auto) 0.6 % Neutrophils # (Auto) 3.8 TH/MM3 Lymphocytes # (Auto) 2.6 TH/MM3 Monocytes # (Auto) 0.9 TH/MM3 Eosinophils # (Auto) 0.9 TH/MM3 Basophils # (Auto) 0.0 TH/MM3 CBC Comment DIFF FINAL Differential Comment Sodium Level 141 MEQ/L Potassium Level 4.8 MEQ/L Chloride Level 106 MEQ/L Carbon Dioxide Level 29.0 MEQ/L Anion Gap 6 MEQ/L Blood Urea Nitrogen 8 MG/DL Creatinine 0.87 MG/DL Estimat Glomerular Filtration 61 ML/MIN Rate Random Glucose 111 MG/DL Calcium Level 9.8 MG/DL Total Bilirubin 0.5 MG/DL Aspartate Amino Transf 36 U/L (AST/SGOT) Alanine Aminotransferase 16 U/L (ALT/SGPT) Alkaline Phosphatase 84 U/L Total Protein 7.3 GM/DL Albumin 3.0 GM/DL Urine Collection Type CLEAN CATCH Urine Color YELLOW Urine Turbidity SLIGHT Urine pH 5.5 Urine Specific [place] 1.017 Urine Protein TRACE mg/dL Urine Glucose (UA) NEG mg/dL Urine Ketones NEG mg/dL Urine Occult Blood SMALL Urine Nitrite POS Urine Bilirubin NEG Urine Leukocyte Esterase LARGE Urine RBC 10-14 /hpf Urine WBC 100-200 /hpf Urine WBC Clumps MANY Urine Squamous Epithelial 0-5 /hpf Cells Urine Renal Epithelial Cells 6-8 /hpf Urine Bacteria MANY /hpf Microscopic Urinalysis Comment CULTURE INDICATED Urine Collection Time 17:30 [facility] Medical Decision Making Medical Screen Exam Complete: Yes Emergency Medical Condition: Yes Differential Diagnosis Neck pain. Dehydration. Neuropathy. Abdominal pain. Constipation. UTI. Electrolyte imbalance. Narrative Course Patient appears medically stable at time of exam. EKG is ordered as well as CBC, CMP, and urinalysis. EKG shows normal sinus rhythm without significant findings. CBC is unremarkable. CMP is unremarkable. Urinalysis is positive for obvious urinary tract infection. Patient is given Macrobid 100 mg by mouth. Patient will be continued on Macrobid twice a day 7 days. Patient is to continue other meds as previously prescribed. Patient should be followed by her primary care physician with urine culture pending. Patient can return with worsening symptoms as needed. Diagnosis Primary Impression: Urinary tract infection Qualified Code: N30.00 - Acute cystitis without hematuria Referrals: Primary Care Physician Patient Instructions: General Instructions Additional Instructions: EKG shows normal sinus rhythm without significant findings. CBC is unremarkable. CMP is unremarkable. Urinalysis is positive for obvious urinary tract infection. Patient is given Macrobid 100 mg by mouth. Patient will be continued on Macrobid twice a day 7 days. Patient is to continue other meds as previously prescribed. Patient should be followed by her primary care physician with urine culture pending. Patient can return with worsening symptoms as needed. Med/Other Pt SpecificInfo: Prescription(s) given Condition: Stable Isaak Garza Nov 02, 2016 16:25
[2016-11-02] MEDS ORDERED: SODIUM CHLORIDE 0.9% FLUSH 10 ML FLUSH IV FLUSH PRN (16:45)
[2016-11-02 17:12] VITALS: O2SAT 96
[2016-11-02 17:19] LABS: AUTOMATED NEUTROPHIL # 3.8 TH/MM3 (1.8-7.7); BASOPHIL % 0.6 % (0.0-2.0); EOSINOPHIL # 0.9 TH/MM3 (0-0.4); EOSINOPHIL % 10.6 % (0.0-4.0); HEMATOCRIT 40.9 % (35.0-46.0); LYMPH % 31.8 % (9.0-44.0); LYMPHOCYTE # 2.6 TH/MM3 (1.0-4.8); MEAN CELL VOLUME 84.8 FL (80.0-100.0); MONO % 11.2 % (0.0-8.0); NEUT % 45.8 % (16.0-70.0); PLATELET COUNT 279 TH/MM3 (150-450); RED BLOOD COUNT 4.82 MIL/MM3 (4.00-5.30); RED CELL DISTRIBUTION WIDTH 13.6 % (11.6-17.2); WHITE BLOOD COUNT 8.3 TH/MM3 (4.0-11.0)
[2016-11-02 17:24] LABS: CHLORIDE 106 MEQ/L (98-107); HEMO FLAGS DIFF FINAL; POTASSIUM 4.8 MEQ/L (3.5-5.1); SODIUM (NA) 141 MEQ/L (136-145)
[2016-11-02 17:28] LABS: ANION GAP 6 MEQ/L (5-15)
[2016-11-02 17:29] LABS: BLOOD UREA NITROGEN 8 MG/DL (7-18)
[2016-11-02 17:31] LABS: ALT (GPT) 16 U/L (10-53); AST (GOT) 36 U/L (15-37)
[2016-11-02 17:32] LABS: GLOMERULAR FILTRATION RATE 61 ML/MIN (>89)
[2016-11-02 17:33] LABS: TOTAL BILIRUBIN ADULT 0.5 MG/DL (0.2-1.0)
[2016-11-02 17:34] LABS: ALKALINE PHOSPHATASE 84 U/L (45-117)
[2016-11-02 17:52] LABS: BLOOD, URINE SMALL (NEG); GLUCOSE,URINE NEG (NEG); KETONE, URINE NEG (NEG); PH, URINE 5.5 (5.0-8.5)
[2016-11-02 18:02] LABS: NITRITE,URINE POS (NEG)
[2016-11-02 18:03] LABS: BACTERIA, URINE MANY /hpf; COMMENT (UR) CULTURE INDICATED; CULTURE IF INDICATED CULTURE INDICATED; METHOD OF COLLECTION CLEAN CATCH; SQUAMOUS EPITHELIAL CELL URINE 0-5 /hpf (0-5); URINE COLOR YELLOW (YELLW/STRAW); WBC, URINE 100-200 /hpf (0-5)
[2016-11-02 18:23] VITALS: BP 112/61; PULSE 95; RESP 18; O2SAT 95
[2016-11-02] MEDS ORDERED: NITROFURANTOIN MONOHYD MACROCR 100 MG CAP PO ONE (19:00)
[2016-11-02] MEDS ORDERED: MACR100C2 PO (19:03)
[2016-11-02 19:25] VITALS: BP 100/65
--- NOTE | 2016-11-03 21:14 | EKG ---
Date Performed: 11/02/2016 Time Performed: 16:55:42 PTAGE: 89 years EKG: Sinus rhythm BORDERLINE LEFT AXIS DEVIATION BORDERLINE ECG PREVIOUS TRACING : 08/02/2016 14.41 Compared to prior tracing no significant change DOCTOR: Aruna Cook Interpretating Date/Time 11/03/2016 21:12:35
== END 2016-11-02 19:49 | disposition home or self-care (01) ==
LOC: PHEFT 15:52
DX: N30.00 Acute cystitis without hematuria (principal); B96.1 Klebsiella pneumoniae [K. pneumoniae] as the cause of diseases classified elsewhere; R94.31 Abnormal electrocardiogram [ECG] [EKG]; M54.2 Cervicalgia; G89.29 Other chronic pain; G62.9 Polyneuropathy, unspecified; R10.84 Generalized abdominal pain; R21 Rash and other nonspecific skin eruption; I10 Essential (primary) hypertension; E07.9 Disorder of thyroid, unspecified; I25.2 Old myocardial infarction; Z79.82 Long term (current) use of aspirin; Z86.79 Personal history of other diseases of the circulatory system; Z87.19 Personal history of other diseases of the digestive system; Z86.69 Personal history of other diseases of the nervous system and sense organs
CPT/HCPCS: 80053; 81001; 85025; 87077; 87086; 87186; 93005; 99284